=== PATIENT | male | born 1955 | race Caucasian/White ===

== ENCOUNTER → 2020-10-12 07:26 | Outpatient (REF) | payer MEDICARE, SELFPAY ==
--- NOTE | 2020-10-12 07:30 | CA_ITS ---
Transthoracic Echocardiogram Patient (Last, First, Middle): Ramy Felix, Gender: Male Date of : 1955 Age: 64 Procedure Date: 10/12/2020 Procedure Type: Transthoracic Echocardiogram Location: OP Height: 180. cm Weight: 128. kg BSA: 2.44 m2 Heart Rate: bpm BP: 122 / 60 mmHg Rehabilitation Case Coordinator: KARIN Referring MD: Mando Dean [facility] Healthcare Marketer: Jose Castellanos MD Symptoms: R01.1 - Cardiac murmur, unspecified Study Quality: Fair ECG Rhythm: Sinus Conclusions: - 1. Normal LV systolic function with moderate LVH with impaired relaxation filling pattern 2. Limited visualization of cardiac valves with normal cardiac valvular Doppler 3. Normal calculated RV systolic pressure 4. No gross pericardial effusion Findings Left Ventricle Normal left ventricular size and systolic function. There is moderately increased left ventricular wall thickness. The visually estimated ejection fraction is between 55-60%. Spectral Doppler is indicative of an impaired relaxation filling pattern. E/E prime ratio is between 8 and 15 consistent with indeterminate filling pressures. Right Ventricle Normal right ventricular cavity size and systolic function. Atria The left atrium is likely dilated. There is lipomatous hypertrophy of the interatrial septum. Interatrial shunt cannot be excluded. The right atrium was not well visualized. Aortic Valve The aortic valve was not well visualized. There is no aortic valve stenosis. There is no aortic valve regurgitation. Mitral Valve Likely normal mitral valve structure and function. There is trace mitral valve regurgitation. There is no mitral valve stenosis. Pulmonic Valve The pulmonic valve was not well visualized. Tricuspid Valve Likely normal tricuspid valve structure and function. There is trace tricuspid valve regurgitation. The right ventricular systolic pressure is normal. There is no evidence of pulmonary hypertension. Great Vessels All visible segments of the aorta are normal in size. The pulmonary artery was not well visualized. Venous The inferior vena cava was not well visualized. Pericardium/Pleural There is no evidence of pericardial effusion. Prior Study Comparison No prior study available for comparison. Measurements 2D Linear Measurements IVSd: 1.56 0.6-0.9/0.6-1.0 cm LVIDd: 4.60 3.9-5.3/4.2-5.9 cm LVIDd Index: 1.89 2.4-3.2/2.2-3.1 cm/m2 LVIDs: 3.18 2.0-3.6 cm LVPWd: 1.55 0.7-1.1 cm Ao Root: 3.50 2.1-3.5 cm LA Diam: 4.20 2.7-3.8/3.0-4.0 cm LAIDs Index: 1.72 1.5-2.3 cm/m2 LV Mass: 375.42 67-162/88-224 g LV Mass Index: 153.86 43-95/49-115 g/m2 LVOT Diam: 2.30 3.0+(-)1.3 cm Mitral Valve MV Pk E: 0.81 MV PK A: 1.11 MV Decel Time: 208.00 E/A: 0.70 E'Lateral: 7.45 E'Medial: 8.70 E/E' Med: 9.30 E/E' Lat: 10.80 PHT: 61.00 MVA PHT: 3.61 Decel Morris: 3.88 Aortic Valve AoV Pk Bobby: 1.75 AoV Mn Bobby: 1.21 AoV VTI: 0.36 AoV Pk Grad: 12.00 Aov Mn Grad: 7.00 KENRICK Cont.VTI: 2.94 LVOT LVOT Pk Bobby: 1.17 LVOT Mn Bobby: 0.78 LVOT VTI: 0.26 LVOT Pk Grad: 5.00 LVOT Mn Grad: 3.00 LVOT Diam: 2.30 LVOT Area: 4.15 Diastolic Function MV Pk E: 0.81 MV Pk A: 1.11 E/A: 0.70 E'Medial: 8.70 E/E' Med: 9.30 E' Laterial: 7.45 E/E' Lat: 10.80 Tricuspid Valve TR Pk Bobby: 1.60 TR Pk Grad: 10.00 RA Press: 3.00 RVSP: 13.00 Great Vessels Aorta Ao Root-2D: 3.50 2.0-3.7 cm Ao Asc: 3.50 2.1-3.4 cm Pulmonary Valve PV Pk Bobby: 1.00 Peak PV Grad: 4.00 Updated in Other Vendor System with Status of Final Jose Castellanos MD electronically signed on 10/12/2020 12:14:37 PM with status of Final
== END ==
LOC: HO.CARD 07:26
PROVIDERS: PCP Nurse Practitioner Family; Visit Provider Nurse Practitioner Family
DX: R01.1 Cardiac murmur, unspecified (principal)
CPT/HCPCS: 93306

== ENCOUNTER 2021-06-06 07:55 | Outpatient (REF) | payer MEDICARE, SELFPAY ==
[2021-06-06 12:24] LABS: Alanine Aminotransferase 38 U/L (0-40); Albumin Level 3.9 g/dL (3.5-5.0); Alkaline Phosphatase 65 U/L (39-117); Anion Gap 13 (12-20); Aspartate Amino Transferase 27 U/L (5-37); Bilirubin Total 0.4 mg/dL (0.0-1.0); Blood Urea Nitrogen 16 mg/dL (9-16); Calcium 9.3 mg/dL (8.4-10.2); Carbon Dioxide 26 mmol/L (22-29); Chloride 104 mmol/L (96-108); Cholesterol 210 mg/dL; Estimated Glomerular Filt Rate > 60; Glucose Fasting 94 mg/dL (60-99); HDL Cholesterol 34 mg/dL; LDL Cholesterol Calculated 133 mg/dl; Potassium 4.2 mmol/L (3.3-5.1); Sodium 139 mmol/L (135-145); Total Protein 7.7 g/dL (6.5-8.0); Triglycerides 215 mg/dL
[2021-06-06 12:35] LABS: TSH reflex Free T4 1.38 uIU/mL (0.32-4.0)
== END 2021-06-06 07:56 | disposition home or self-care (01) ==
LOC: HO.HMGCLDS 07:55
PROVIDERS: PCP Nurse Practitioner Family; Visit Provider Nurse Practitioner Family
DX: Z12.5 Encounter for screening for malignant neoplasm of prostate (principal); I10 Essential (primary) hypertension
CPT/HCPCS: 36415; 80053; 80061; 84153; 84443

== ENCOUNTER 2021-06-20 15:31 | Outpatient (REF) | payer MEDICARE, SELFPAY ==
--- NOTE | ~2021-06-20 | XR_ITS ---
EXAMINATION: XR KNEE, LEFT CLINICAL INFORMATION: Pain in left knee. COMPARISON: None. TECHNIQUE: 4 views of the left knee. FINDINGS: There is loss of medial and patellofemoral compartment joint space with mild periarticular spurring in the tricompartments. There is mild suprapatellar joint effusion. No bony erosive changes or loose body seen. XR/XR knee LT 4V IMPRESSION: Degenerative arthritic left knee with periarticular spurring in the medial and patellofemoral compartment with mild loss of joint space. Mild suprapatellar joint effusion. No acute fracture or loose body seen.
== END 2021-06-20 15:32 | disposition home or self-care (01) ==
LOC: HO.HMGCX 15:31
PROVIDERS: PCP Nurse Practitioner Family; Visit Provider Nurse Practitioner Family
DX: M25.562 Pain in left knee (principal)
CPT/HCPCS: 73564

== ENCOUNTER 2021-10-28 15:11 | Outpatient (REF) | payer MEDICARE, SELFPAY ==
--- NOTE | ~2021-10-28 | CT_ITS ---
EXAMINATION: CT CHEST SCREENING CLINICAL INFORMATION: Current smoker. 48 pack year history. COMPARISON: None. TECHNIQUE: Multidetector volumetric CT imaging of the chest is performed without contrast using low dose technique. Additional 2D coronal and sagittal reformatted images and axial 3D maximum intensity projection (MIP) images are generated on the CT workstation. This CT examination was performed using dose optimization techniques as appropriate, variously including the following: *Automated exposure control *Adjustment of mA and/or kV according to patient size (this includes techniques or standardized protocols for targeted exams where dose is matched to indication/reason for exam; i.e. extremities or head) *Use of iterative reconstruction technique DLP: 101 mGy-cm FINDINGS: LUNGS: There is evidence of emphysema. There is mild cystic change seen in the lungs. There is a 4 mm left upper lobe nodule axial image 153 series 5. There are 2 adjacent left upper lobe nodules measuring 3 and 4 mm axial image 186 and 190 series 5. There is a 4 mm peripheral or subpleural left upper lobe nodule adjacent to the fissure axial image 189 series 5. There is a 3 mm peripheral nodule along the right minor fissure axial image 272 series 5. There is minimal scarring or subsegmental atelectasis at the lung bases. No endobronchial or endotracheal lesion is seen. MEDIASTINUM: The mediastinum is normal. PLEURA: There is no pleural effusion. No pleural mass or thickening. AXILLA: No lymphadenopathy. UPPER ABDOMEN: Unremarkable OSSEOUS STRUCTURES: Mild degenerative changes of the spine. CT/CT lung screening IMPRESSION: Emphysema. Small pulmonary nodules. ASSESSMENT: Lung-RADS category 2: Benign RECOMMENDATION: Annual low-dose chest CT follow-up recommended.
== END 2021-10-28 15:12 | disposition home or self-care (01) ==
LOC: HO.CT 15:11
PROVIDERS: Visit Provider Physician Assistant Medical
DX: Z12.2 Encounter for screening for malignant neoplasm of respiratory organs (principal); F17.210 Nicotine dependence, cigarettes, uncomplicated
CPT/HCPCS: 71271; G0296

== ENCOUNTER 2022-01-16 07:27 | Outpatient (REF) | payer MEDICARE, SELFPAY ==
[2022-01-16 11:38] LABS: Appearance Urine Clear; Color Urine Yellow; Glucose Urine UA Negative (Negative); Leukocyte Esterase Urine Trace (Negative); Nitrite Urine Negative (Negative); PH 6.5 (5.0-8.0); Urine Blood Negative (Negative); Urine Ketones Negative (Negative); Urine Protein Negative (Neg-Trace)
[2022-01-16 11:42] LABS: Bacteria Urine None Seen (None Seen); Hyaline Casts Urine 0-2 /LPF (0-2); RBC Urine 0-2 /HPF (0-2); Squamous Epithelial Cell Urine 0-2 /HPF (0-2); WBC Urine 0-5 /HPF (0-5)
[2022-01-16 12:09] LABS: Alanine Aminotransferase 39 U/L (0-40); Alkaline Phosphatase 62 U/L (39-117); Anion Gap 16 (12-20); Aspartate Amino Transferase 29 U/L (5-37); Bilirubin Total 0.6 mg/dL (0.0-1.0); Blood Urea Nitrogen 15 mg/dL (9-16); Calcium 9.5 mg/dL (8.4-10.2); Carbon Dioxide 25 mmol/L (22-29); Chloride 105 mmol/L (96-108); Cholesterol 208 mg/dL; Estimated Glomerular Filt Rate > 60; Glucose Fasting 108 mg/dL (60-99); HDL Cholesterol 35 mg/dL; LDL Cholesterol Calculated 130 mg/dl; Potassium 4.5 mmol/L (3.3-5.1); Sodium 141 mmol/L (135-145); Total Protein 7.6 g/dL (6.5-8.0); Triglycerides 217 mg/dL
[2022-01-16 12:15] LABS: TSH reflex Free T4 1.29 uIU/mL (0.32-4.0)
== END 2022-01-16 07:28 | disposition home or self-care (01) ==
LOC: HO.HMGCLDS 07:27
PROVIDERS: PCP Nurse Practitioner Family; Visit Provider Nurse Practitioner Family
DX: E78.5 Hyperlipidemia, unspecified (principal)
CPT/HCPCS: 36415; 80053; 80061; 81001; 84443

== ENCOUNTER 2022-02-14 13:42 | Outpatient (REF) | payer MEDICARE, SELFPAY ==
[2022-02-14 14:20] LABS: Binax Internal Control QC Valid; Binax Now Covid-19 Ag Negative (Negative); Binax Performed by: HO.BONILM
== END 2022-02-14 13:43 | disposition home or self-care (01) ==
LOC: HO.HMGCLDS 13:42
PROVIDERS: PCP Nurse Practitioner Family; Visit Provider Internal Medicine
DX: Z20.822 Contact with and (suspected) exposure to COVID-19 (principal); J06.9 Acute upper respiratory infection, unspecified
CPT/HCPCS: 87811; C9803

== ENCOUNTER 2022-05-04 14:33 | Outpatient (REF) | payer MEDICARE, SELFPAY ==
[2022-05-04 15:17] LABS: Influenza A PCR POSITIVE (Negative); Influenza B PCR NEGATIVE (Negative); Resp Syncy Virus RNA Qual PCR NEGATIVE (Negative); SARS COV2 PCR INHOUSE NEGATIVE (Negative)
== END 2022-05-04 14:34 | disposition home or self-care (01) ==
LOC: HO.LNP 14:33
DX: Z20.822 Contact with and (suspected) exposure to COVID-19 (principal); J06.9 Acute upper respiratory infection, unspecified
CPT/HCPCS: 0241U

== ENCOUNTER 2022-07-12 08:22 | Outpatient (REF) | payer MEDICARE, SELFPAY ==
[2022-07-12 11:31] LABS: Appearance Urine Clear; Color Urine Yellow; Glucose Urine UA Negative (Negative); Leukocyte Esterase Urine Negative (Negative); Nitrite Urine Negative (Negative); PH 6.5 (5.0-9.0); Urine Blood Negative (Negative); Urine Ketones Negative (Negative); Urine Protein Negative (Neg-Trace)
[2022-07-12 12:26] LABS: Alanine Aminotransferase 27 U/L (0-40); Albumin Level 3.9 g/dL (3.5-5.0); Alkaline Phosphatase 65 U/L (39-117); Anion Gap 15 (12-20); Aspartate Amino Transferase 32 U/L (5-37); Bilirubin Total 0.7 mg/dL (0.0-1.0); Blood Urea Nitrogen 12 mg/dL (9-16); Calcium 9.2 mg/dL (8.4-10.2); Carbon Dioxide 25 mmol/L (22-29); Chloride 104 mmol/L (96-108); Cholesterol 127 mg/dL; Estimated Glomerular Filt Rate > 60; Glucose Fasting 97 mg/dL (60-99); HDL Cholesterol 34 mg/dL; LDL Cholesterol Calculated 68 mg/dl; Potassium 4.8 mmol/L (3.3-5.1); Sodium 139 mmol/L (135-145); Total Protein 7.6 g/dL (6.5-8.0); Triglycerides 129 mg/dL
== END 2022-07-12 08:23 | disposition home or self-care (01) ==
LOC: HO.HMGCLDS 08:22
PROVIDERS: PCP Nurse Practitioner Family; Visit Provider Nurse Practitioner Family
DX: E78.5 Hyperlipidemia, unspecified (principal)
CPT/HCPCS: 36415; 80053; 80061; 81003

== ENCOUNTER 2022-08-05 08:46 | Outpatient (REF) | payer MEDICARE, SELFPAY | END 2022-08-05 08:47 | disposition home or self-care (01) | LOC: HO.HMGCLDS 08:46 | PROVIDERS: PCP Nurse Practitioner Family; Visit Provider Nurse Practitioner Family | DX: Z12.5 Encounter for screening for malignant neoplasm of prostate (principal) | CPT/HCPCS: 36415; 84153 ==

== ENCOUNTER 2022-08-28 08:46 | Outpatient (REF) | payer MEDICARE, SELFPAY ==
--- NOTE | ~2022-08-28 | XR_ITS ---
EXAMINATION: XR CHEST CLINICAL INFORMATION: Acute upper respiratory infection. COMPARISON: 05/08/2009 chest radiographs. TECHNIQUE: 2 views of the chest were obtained. FINDINGS: Mild linear markings are seen in the right middle lobe and lingula. There are no pleural effusions. The heart and mediastinal structures are unremarkable. XR/XR chest 2V IMPRESSION: Mild linear atelectasis versus scarring in the right middle lobe and lingula. No acute cardiopulmonary process.
== END 2022-08-28 08:47 | disposition home or self-care (01) ==
LOC: HO.HMGCX 08:46
PROVIDERS: PCP Nurse Practitioner Family; Visit Provider Internal Medicine
DX: J06.9 Acute upper respiratory infection, unspecified (principal)
CPT/HCPCS: 71046

== ENCOUNTER 2022-10-30 15:00 | Outpatient (REF) | payer MEDICARE, SELFPAY ==
--- NOTE | ~2022-10-30 | CT_ITS ---
EXAMINATION: CT CHEST SCREENING CLINICAL INFORMATION: 48 pack year history. Current smoker. COMPARISON: Previous chest CT October 2021 and chest x-ray August 2022 TECHNIQUE: Multidetector volumetric CT imaging of the chest is performed without contrast using low dose technique. Additional 2D coronal and sagittal reformatted images and axial 3D maximum intensity projection (MIP) images are generated on the CT workstation. This CT examination was performed using dose optimization techniques as appropriate, variously including the following: *Automated exposure control *Adjustment of mA and/or kV according to patient size (this includes techniques or standardized protocols for targeted exams where dose is matched to indication/reason for exam; i.e. extremities or head) *Use of iterative reconstruction technique DLP: 90 mGy-cm FINDINGS: LUNGS: Mild emphysema. 4 mm left upper lobe nodule axial image 134 series 5. 3 mm left upper lobe nodule axial image 168 and 172 series 5. 4 mm peripheral or subpleural right middle lobe nodule adjacent to the major fissure axial image 311 series 5. These are stable. No new pulmonary nodule. Scattered areas of scarring or subsegmental atelectasis are stable. MEDIASTINUM: The mediastinum is normal. CORONARY ARTERY CALCIFICATION: None visualized on this study. PLEURA: There is no pleural effusion. No pleural mass or thickening. AXILLA: No lymphadenopathy. UPPER ABDOMEN: Unremarkable OSSEOUS STRUCTURES: Degenerative changes of the spine. Right anterior lateral 10th rib fracture. CT/CT lung screening IMPRESSION: Emphysema. Stable small pulmonary nodules. ASSESSMENT: Lung-RADS category 2: Benign RECOMMENDATION: Annual low-dose chest CT follow-up recommended.
== END 2022-10-30 15:01 | disposition home or self-care (01) ==
LOC: HO.CT 15:00
PROVIDERS: PCP Nurse Practitioner Family; Visit Provider Physician Assistant Medical
DX: Z12.2 Encounter for screening for malignant neoplasm of respiratory organs (principal); F17.210 Nicotine dependence, cigarettes, uncomplicated
CPT/HCPCS: 71271

== ENCOUNTER 2023-04-02 08:39 | Outpatient (AMB) | payer MEDICARE, SELFPAY ==
--- NOTE | 2023-04-02 08:47 | A.OFFPC_ITS ---
Vital Signs 04/02/23 08:48 Height 5 ft 11 in Weight 281 lb BMI 39.2 BP 122/78 Blood Pressure Location Lt brachial Position Sitting Pulse 82 Pulse Source Pulse Oximeter Pulse Oximetry (%) 93 Oxygen Delivery Method Room Air Intake Visit Reasons: 6 Month follow up Allergies camphor [From POLAR FREEZE] Allergy (Unknown, Verified 04/02/23 08:49) UNK menthol [From POLAR FREEZE] Allergy (Unknown, Verified 04/02/23 08:49) UNK ragweed pollen [RAGWEED] Allergy (Unknown, Verified 04/02/23 08:49) UNK DUST Allergy (Unknown, Uncoded 04/02/23 08:49) UNK Tobacco use date assessed: 09/27/22 Fall risk assessment: No Falls in past year Last assessed Fall Risk: 04/02/23 Dental Screening Dental Screen Date: 04/02/23 Did you have a dental visit in the last 12 months?: No Did you have a dental problem in the last 6 months where you did not have access to dental care?: No Was dental information given to patient?: Patient has dentist HPI 6 Month follow up HPI Details Dyslipidemia: Pt is currently taking rosuvastatin 10mg. Labs have already been ordered. Denies chest pain, shortness of breath, and dizziness. [facility] Medical History (Updated 09/27/22 @ 09:55 by ADOLFO Andino-MARGY) Obesity Personal history of nicotine dependence Dyslipidemia Hidradenitis suppurativa HTN (hypertension) Surgical History History of colonoscopy Social History Housing: Other Alcohol intake: current Alcohol intake frequency: holidays/special occasions only Patient Tobacco Use Status: Current everyday Tobacco user Tobacco use type: Cigarette Cigarettes Per Day: 5 Years Smoked: (onset 18yo, x 47 years at 3/4ppd - 35pyh) e-Cigarette/Vaping Use: Currently Using Second Hand Smoke Exposure: No service: No Current occupational status: employed 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 Carlos Etienne, Juana Lezama, Raz Kline and colleagues, with an educational radha from [employer]. Review of Systems Const Reports as per HPI Physical exam (Primary Care) Vital Signs: Last Vital Signs Pulse 82 04/02/23 08:48 BP 122/78 04/02/23 08:48 Pulse Ox 93 04/02/23 08:48 Oxygen Delivery Method Room Air 04/02/23 08:48 BMI result Body Mass Index 39.2 Tobacco/Smoking Status: Tobacco use Status Tobacco use date assessed 09/27/22 04/02/23 08:48 Patient Tobacco Use Status Current everyday Tobacco 04/02/23 08:48 Tobacco use type Cigarette 04/02/23 08:48 e-Cigarette/Vaping Use Currently Using 04/02/23 08:48 Thrive Assessment: Date of Thrive Assessment Date Thrive assessed 09/27/22 04/02/23 08:48 Const General: cooperative Nutritional Appearance: obese Orientation/consciousness: patient oriented x3 Resp Effort & Inspection: normal respiratory effort Auscultation: clear to auscultation bilaterally Cardio Rate: regular rate Rhythm: regular rhythm Heart sounds: S1 normal heart sound present and S2 normal heart sound present Neuro General: patient oriented x3 Psych Appearance: grossly normal Mental Status: mental status grossly normal Speech and movement: Normal speech and movement present Affect: normal affect Attitude: cooperative Thought process: Normal thought process present Thought content: Normal thought content present Insight: Good insight present (Psych) Judgement: Good judgement present (Psych) Assessment and Plan Assessment & Plan (1) Dyslipidemia: Code(s): E78.5 - Hyperlipidemia, unspecified Plan: Labs have already been ordered Plan The patient agreed to the use of a certified medical biller for this encounter. Scribed for MYA Loza by Elise Freeman certified medical biller, on 04/02/2023 at 09:00 EST. Coding Level of Care Code Est Pt Level 3 (19500) Diagnoses Dyslipidemia E78.5
[2023-04-02 08:48] VITALS: BP 122/78; PULSE 82; O2SAT 93; BMI 39.2
== END 2023-04-02 09:08 | disposition home or self-care (01) ==
PROVIDERS: Visit Provider Nurse Practitioner Family
DX: E78.5 Hyperlipidemia, unspecified (principal)
CPT/HCPCS: 99213

== ENCOUNTER 2023-04-02 09:09 | Outpatient (REF) | payer MEDICARE, SELFPAY ==
[2023-04-02 11:18] LABS: Appearance Urine Clear; Color Urine Yellow; Glucose Urine UA Negative (Negative); Leukocyte Esterase Urine Negative (Negative); Nitrite Urine Negative (Negative); PH 6.5 (5.0-9.0); Urine Blood Negative (Negative); Urine Ketones Negative (Negative); Urine Protein Negative (Neg-Trace)
[2023-04-02 11:18] LABS: Basophils Absolute Auto 0.1 X10*3/uL (0.0-0.2); Basophils Percent Auto 0.8 % (0-2); Eosinophils Absolute Auto 0.4 X10*3/uL (0.0-0.4); Eosinophils Percent Auto 3.9 % (0-4); Hematocrit 49.9 % (42.0-52.0); Hemoglobin 16.1 g/dl (14.0-18.0); Imm Gran Abs Auto 0.03 X10*3/uL (0.00-0.03); Imm Gran Pct Auto 0.3 % (0.0-0.4); MANUAL DIFF FLAG NO; Mean Corpuscular HGB Conc 32.3 g/dl (31.0-36.0); Mean Corpuscular Hemoglobin 32.1 pg (27.0-33.0); Mean Corpuscular Volume 99.4 fL (80.0-98.0); Mean Platelet Volume 12.4 fL (9.4-12.4); Monocytes Absolute Auto 0.8 X10*3/uL (0.1-1.2); Monocytes Percent Auto 7.5 % (2-11); Neutrophils Absolute Auto 6.1 x10*3/uL (2.0-8.3); Neutrophils Percent Auto 58.5 % (45-73); Platelet Count 215 X10*3/uL (160-400); Red Blood Count 5.02 X10*6/uL (4.60-5.80); Red Cell Distribution Width 13.2 % (11.0-16.0); White Blood Count 10.5 X10*3/uL (4.8-10.8)
[2023-04-02 11:51] LABS: Alanine Aminotransferase 25 U/L (0-40); Alkaline Phosphatase 68 U/L (39-117); Anion Gap 12 (12-20); Aspartate Amino Transferase 24 U/L (5-37); Bilirubin Total 0.3 mg/dL (0.0-1.0); Blood Urea Nitrogen 10 mg/dL (9-16); Calcium 9.7 mg/dL (8.4-10.2); Carbon Dioxide 27 mmol/L (22-29); Chloride 103 mmol/L (96-108); Cholesterol 133 mg/dL (<200); Estimated Glomerular Filt Rate > 60; Glucose Fasting 106 mg/dL (60-99); HDL Cholesterol 36 mg/dL (>40); LDL Cholesterol Calculated 65 mg/dL (<100); Potassium 4.2 mmol/L (3.3-5.1); Sodium 138 mmol/L (135-145); Total Protein 7.9 g/dL (6.5-8.0); Triglycerides 163 mg/dL (<150)
[2023-04-02 11:52] LABS: TSH reflex Free T4 1.15 uIU/mL (0.32-4.0)
== END 2023-04-02 09:10 | disposition home or self-care (01) ==
LOC: HO.HMGCLDS 09:09
PROVIDERS: PCP Nurse Practitioner Family; Visit Provider Nurse Practitioner Family
DX: Z00.00 Encounter for general adult medical examination without abnormal findings (principal); E78.5 Hyperlipidemia, unspecified; I10 Essential (primary) hypertension; E66.9 Obesity, unspecified; F17.200 Nicotine dependence, unspecified, uncomplicated
CPT/HCPCS: 36415; 80053; 80061; 81003; 84443; 85025

== ENCOUNTER 2023-08-11 11:42 | Outpatient (AMB) | payer MEDICARE, SELFPAY ==
[2023-08-11 11:48] VITALS: BP 130/80; PULSE 83; TEMP 36.8; O2SAT 93; BMI 39.2
--- NOTE | 2023-08-11 11:48 | AM.OFFWIN_ITS ---
Intake Vital Signs 08/11/23 11:48 Height 5 ft 11 in Weight 281 lb BMI 39.2 BP 130/80 Blood Pressure Location Lt brachial Position Sitting Pulse 83 Pulse Source Pulse Oximeter Temp 98.3 F Temp Source Oral Pulse Oximetry (%) 93 Oxygen Delivery Method Room Air Intake Visit Reasons: EP Swollen glands, cold, hard to breath Intake Note: pt is here for sore throat, cough, difficulty breathign due to congestion Patient Tobacco Use Status: Current everyday Tobacco user Allergies camphor [From POLAR FREEZE] Allergy (Unknown, Verified 08/11/23 11:48) UNK menthol [From POLAR FREEZE] Allergy (Unknown, Verified 08/11/23 11:48) UNK ragweed pollen [RAGWEED] Allergy (Unknown, Verified 08/11/23 11:48) UNK DUST Allergy (Unknown, Uncoded 04/02/23 08:49) UNK Do you need a note to return to daycare/school/sports/work: No HPI HPI Comments History of Present Illness Details 67-year-old male presents for nasal yecenia estion sinus pressure and fever. Also endorses some mild shortness of breath and chest congestion. Mucus is greenish in color fever 100.7. Home COVID test negative PFSH Medical History (Updated 08/11/23 @ 12:05 by ROXANA John) Obesity Personal history of nicotine dependence Dyslipidemia Hidradenitis suppurativa HTN (hypertension) Surgical History History of colonoscopy Social History Housing: Other Alcohol intake: current Alcohol intake frequency: holidays/special occasions only Patient Tobacco Use Status: Current everyday Tobacco user Tobacco use type: Cigarette Cigarettes Per Day: 5 Years Smoked: (onset 18yo, x 47 years at 3/4ppd - 35pyh) e-Cigarette/Vaping Use: Currently Using Second Hand Smoke Exposure: No service: No Current occupational status: employed 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 Cognitive needs: No Hearing needs: No Vision needs: No Physical Exam Vital Signs: Last Vital Signs Temp 98.3 F 08/11/23 11:48 Pulse 83 08/11/23 11:48 BP 130/80 08/11/23 11:48 Pulse Ox 93 08/11/23 11:48 Oxygen Delivery Method Room Air 08/11/23 11:48 BMI result Body Mass Index 39.2 Const General: cooperative, healthy appearing, no acute distress and alert Orientation/consciousness: patient oriented x3 Limitations: no limitations HEENT Head: Yes normal to inspection Ears: hearing grossly normal bilaterally General nose exam: Normal external nose present Resp Effort & Inspection: normal respiratory effort and able to speak in complete sentences Cardio Rate: regular rate Skin General skin exam: no rashes or lesions noted Neuro General: patient oriented x3 Extrem General: Yes normal to inspection Assessment & Plan Assessment & Plan (1) Acute sinusitis: Code(s): J01.90 - Acute sinusitis, unspecified Qualifiers: Sinusitis location: maxillary Recurrence: non-recurrent Qualified Code(s): J01.00 - Acute maxillary sinusitis, unspecified Plan: Suspect acute sinusitis will prescribe amoxicillin b.i.d. times 10 days. Medications: New amoxicillin-pot clavulanate 875-125 mg 1 tab PO BID 20 tabs 0RF Refilled albuterol sulfate 90 mcg/actuation 1 inh inhalation QID PRN 6.7 grams 1RF shortness of breath or wheezing Coding Level of Care Code Est Pt Level 2 (41341) Diagnoses Acute non-recurrent maxillary sinusitis J01.00 Sinusitis location: maxillary Recurrence: non-recurrent
== END 2023-08-11 12:06 | disposition home or self-care (01) ==
PROVIDERS: PCP Nurse Practitioner Family; Visit Provider Physician Assistant
DX: J01.00 Acute maxillary sinusitis, unspecified (principal)
CPT/HCPCS: 99051; 99212

== ENCOUNTER 2023-10-08 07:27 | Outpatient (AMB) | payer MEDICARE, SELFPAY ==
--- NOTE | 2023-10-08 07:38 | A.OFFPC_ITS ---
Vital Signs 10/08/23 07:43 Height 5 ft 11 in Weight 279 lb BMI 38.9 BP 116/74 Blood Pressure Location Rt brachial Position Sitting Pulse 76 Pulse Source Pulse Oximeter Pulse Oximetry (%) 92 Oxygen Delivery Method Room Air Intake Visit Reasons: PE/Ins. covered Intake Note: Patient here for physical exam. Colon: up to date due in 2024 Allergies camphor [From POLAR FREEZE] Allergy (Unknown, Verified 10/08/23 08:10) UNK menthol [From POLAR FREEZE] Allergy (Unknown, Verified 10/08/23 08:10) UNK ragweed pollen [RAGWEED] Allergy (Unknown, Verified 10/08/23 08:10) UNK DUST Allergy (Unknown, Uncoded 10/08/23 08:10) UNK Tobacco use date assessed: 10/08/23 Fall risk assessment: No Falls in past year Last assessed Fall Risk: 10/08/23 Dental Screening Dental Screen Date: 10/08/23 Did you have a dental visit in the last 12 months?: No Did you have a dental problem in the last 6 months where you did not have access to dental care?: No Was dental information given to patient?: No HPI PE/Ins. covered HPI Details Pt is here for a PE. Will order labs. Colon screen is up to date. Due for PSA, will order. Denies dribbling with urination, weak stream, and frequent nocturia. Pt is a smoker, goes for low-dose CTs. Pt has a hx of AAA. Will order US. Pt had basal cell carcinoma to left nare/face, removed approximately 2 weeks ago, bandage on currently. Next derm appt in 2 weeks for a follow up. Hx of vitamin D deficiency, will order lab. [facility] Medical History (Updated 10/08/23 @ 08:12 by MYA Andino) Hypertensive retinopathy Basal cell carcinoma (BCC) Obesity Personal history of nicotine dependence Dyslipidemia Hidradenitis suppurativa HTN (hypertension) Surgical History History of colonoscopy Social History Housing: Other Alcohol intake: current Alcohol intake frequency: holidays/special occasions only Patient Tobacco Use Status: Current everyday Tobacco user Tobacco use type: Cigarette Cigarettes Per Day: 5 Years Smoked: (onset 18yo, x 47 years at 3/4ppd - 35pyh) e-Cigarette/Vaping Use: Currently Using Second Hand Smoke Exposure: No service: No Current occupational status: employed 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 1. Little interest or pleasure in doing things: not at all 2. Feeling down, depressed, or hopeless: not at all 3. Trouble falling or staying asleep, or sleeping too much: not at all 4. Feeling tired or having little energy: not at all 5. Poor appetite or overeating: not at all 6. Feeling bad about yourself - or that you are a failure or have let yourself or your family down: not at all 7. Trouble concentrating on things, such as reading the newspaper or watching television: not at all 8. Moving or speaking so slowly that other people could have noticed. Or the opposite - being so fidgety or restless that you have been moving around a lot more than usual: not at all 9. Thoughts that you would be better off or of hurting yourself in some way: not at all Total score: 0 Depression Screening Interpretation: Negative Depression Screening Done: Yes 44705 - PHQ-9 Billing: Yes Source: Developed by Drs. Carlos Etienne, Juana Lezama, Raz Kline and colleagues, with an educational radha from [employer]. Thrive Questionnaire Date Thrive assessed: 09/27/22 I am a: Patient What is your living situation today?: I choose not to answer this question Within the past 12 months, did the food you bought not last and you didn't have the money to get more?: I choose not to answer this question Within the past 12 months, did you worry whether your food would run out before you got money to buy more?: I choose not to answer this question Do you have trouble paying for medicines?: I choose not to answer this question Do you have trouble getting transportation to medical appointments?: I choose not to answer this question Do you have trouble paying your heating and electricity bill?: I choose not to answer this question Do you have trouble taking care of your child, family member or friend?: I choose not to answer this question Do you have trouble with day-to-day activities such as bathing, preparing meals, shopping, managing finances, etc.?: I choose not to answer this question Are you currently unemployed and looking for a job?: I choose not to answer this question Are you interested in more education?: I choose not to answer this question Currently or been in a relationship where the following occur: I choose not to answer this question THRIVE Score: 0 AUDIT C Alcohol Use Questionnaire (AUDIT-C) 1. How often do you have a drink containing alcohol?: Never 3. How often do you have six or more drinks on one occasion?: Never Total Score: 0 Score Reviewed/Action Taken: No KILEY-7 AMB Questionnaire KILEY-7 Date KILEY - 7 assessed: 10/08/23 Feeling nervous, anxious, or on edge: 0 = Not at all Not being able to stop or control worryin = Not at all Worrying too much about different things: 0 = Not at all Trouble relaxin = Not at all Being so restless that it is hard to sit still: 0 = Not at all Becoming easily annoyed or irritable: 0 = Not at all Feeling afraid as if something awful might happen: 0 = Not at all Total KILEY-7 score (0-4 normal; 5-9 mild; 10-14 moderate; 15-21 severe): 0 Source: Developed by Drs. Carlos Etienne, Juana Lezama, Raz Kline and colleagues, with an educational radha from [employer]. KILEY-7 Assessment Billing KILEY-7 Assessment Tool: KILEY-7 Assessment 94528 Review of Systems Const Denies chills and Denies fever(s) Eyes Denies blurry vision ENT Denies vertigo, Denies dizziness and Denies sore throat Card Denies chest pain at rest, Denies chest pain with activity, Denies diaphoresis, Denies dyspnea and Denies dyspnea on exertion Resp Denies cough, Denies dyspnea, Denies dyspnea on exertion and Denies wheezing GI Denies abdominal pain, Denies melena, Denies hematochezia, Denies constipation, Denies diarrhea and Denies loose stools Denies hematuria Musc Denies numbness and Denies tingling Skin/Breast Denies lesions Neuro Denies vertigo, Denies dizziness, Denies numbness and Denies tingling Psych Denies anxiety, Denies depression, Denies homicidal ideation, Denies suicidal ideation and Denies other (substance abuse) Aller/Immun Denies wheezing Physical exam (Primary Care) Vital Signs: Last Vital Signs Pulse 76 10/08/23 07:43 BP 116/74 10/08/23 07:43 Pulse Ox 92 10/08/23 07:43 Oxygen Delivery Method Room Air 10/08/23 07:43 BMI result Body Mass Index 38.9 Tobacco/Smoking Status: Tobacco use Status Tobacco use date assessed 10/08/23 10/08/23 07:47 Patient Tobacco Use Status Current everyday Tobacco 10/08/23 07:40 Tobacco use type Cigarette 10/08/23 07:40 e-Cigarette/Vaping Use Currently Using 10/08/23 07:40 PHQ-9: PHQ-9 Score PHQ-9: Total score 0 10/08/23 07:49 Depression Screening Interpretation: Negative Thrive Assessment: Date of Thrive Assessment Date Thrive assessed 09/27/22 10/08/23 07:40 Currently or been in a relationship where the following occur: I choose not to answer this question Const General: cooperative Nutritional Appearance: well nourished and obese Orientation/consciousness: patient oriented x3 HENMT Head: Yes normal to inspection, Yes normocephalic and Yes atraumatic Ears: TM's normal bilaterally Eyes General: appearance normal, both eyes and all related structures Alignment and Position: alignment normal and position normal Neck Neck: Yes normal visual inspection and Yes no lymphadenopathy Thyroid: Thyroid normal Resp Effort & Inspection: normal respiratory effort Auscultation: clear to auscultation bilaterally and diminished lung sounds Cardio Rate: regular rate Rhythm: regular rhythm Heart sounds: S1 normal heart sound present, S2 normal heart sound present and Murmur heart sound present systolic (faint) GI Palpation (GI): Soft to palpation and nontender Auscultation: normal bowel sounds Male General Exam: Yes normal external exam Penis: normal penis Scrotum: scrotum normal, testes descended bilaterally and no inguinal hernias Testes: no testicular mass Skin Other: bilat external elbows with faintly erythematous, dry appearing dermatitis, ? psoriasis. left nare/face bandage is CD+I. dressing post auricular (left) is CD+I. Multiple dry appearing lesions (range in color and shape) to upper chest/back, BUE. lower pannus with faint erythema, no signs of infection noted. Rashes: no rashes Neuro General: patient oriented x3, moves all extremities, no focal motor deficits and deep tendon reflexes 2+ bilaterally Romberg Test: Negative Psych Appearance: grossly normal Mental Status: mental status grossly normal Speech and movement: Normal speech and movement present Affect: normal affect Attitude: cooperative Thought process: Normal thought process present Thought content: Normal thought content present Insight: Good insight present (Psych) Judgement: Good judgement present (Psych) Assessment and Plan Assessment & Plan (1) Encounter for routine adult physical exam with abnormal findings: Code(s): Z00.01 - Encounter for general adult medical examination with abnormal findings Plan: Labs ordered (2) Screening PSA (prostate specific antigen): Code(s): Z12.5 - Encounter for screening for malignant neoplasm of prostate Plan: PSA ordered (3) Screening for AAA (abdominal aortic aneurysm): Code(s): Z13.6 - Encounter for screening for cardiovascular disorders Plan: US ordered (4) Smoker: Code(s): F17.200 - Nicotine dependence, unspecified, uncomplicated Plan: LDCTs (5) Vitamin D deficiency: Code(s): E55.9 - Vitamin D deficiency, unspecified Plan: Vitamin D ordered (6) Basal cell carcinoma (BCC): Code(s): C44.91 - Basal cell carcinoma of skin, unspecified Plan: follows up with derm Plan The patient agreed to the use of a medical administrator for this encounter. Scribed for ADOLFO Loza-MARGY by Elise Freeman medical administrator, on 10/08/2023 at 07:50 EST. Orders: Orders Complete Blood Count Auto Diff Today Z00.01 - Encounter for general adult medical examination with abnormal findings TSH reflex Free T4 Today Z00.01 - Encounter for general adult medical examination with abnormal findings UA CC w/rflx Micro + Cult Today Z00.01 - Encounter for general adult medical examination with abnormal findings Prostate Specific Antigen Scr Today Z12.5 - Encounter for screening for malignant neoplasm of prostate US abdominal aortic aneurysm Today F17.200 - Nicotine dependence, unspecified, uncomplicated, Z13.6 - Encounter for screening for cardiovascular disorders Comprehensive Oley. Panel Fast Today Z00.01 - Encounter for general adult medical examination with abnormal findings Lipid Panel Today Z00.01 - Encounter for general adult medical examination with abnormal findings Vitamin D 25-OH Total Today E55.9 - Vitamin D deficiency, unspecified Coding Level of Care Code Est Pt Prev Care >65y(34640) Diagnoses Encounter for routine adult physical exam with abnormal findings Z00.01 Screening PSA (prostate specific antigen) Z12.5 Screening for AAA (abdominal aortic aneurysm) Z13.6 Smoker F17.200 Vitamin D deficiency E55.9 Basal cell carcinoma (BCC) C44.91 Additional Codes KILEY-7 Assessment Billing - KILEY-7 Assessment Tool: KILEY-7 Assessment [id number] ([id number])
[2023-10-08 07:43] VITALS: BP 116/74; PULSE 76; O2SAT 92; BMI 38.9
== END 2023-10-08 08:06 | disposition home or self-care (01) ==
PROVIDERS: Visit Provider Nurse Practitioner Family
DX: Z00.00 Encounter for general adult medical examination without abnormal findings (principal); Z12.5 Encounter for screening for malignant neoplasm of prostate; Z13.6 Encounter for screening for cardiovascular disorders; F17.200 Nicotine dependence, unspecified, uncomplicated; E55.9 Vitamin D deficiency, unspecified; C44.91 Basal cell carcinoma of skin, unspecified
CPT/HCPCS: 99397

== ENCOUNTER 2023-10-08 08:05 | Outpatient (REF) | payer MEDICARE, SELFPAY ==
[2023-10-08 10:21] LABS: Appearance Urine Clear; Color Urine Yellow; Glucose Urine UA Negative (Negative); Leukocyte Esterase Urine Negative (Negative); Nitrite Urine Negative (Negative); Urine Blood Negative (Negative); Urine Ketones Negative (Negative); Urine Protein Negative (Neg-Trace)
[2023-10-08 10:22] LABS: MANUAL DIFF FLAG NO
[2023-10-08 10:32] LABS: Basophils Absolute Auto 0.1 X10*3/uL (0.0-0.2); Basophils Percent Auto 0.6 % (0-2); Eosinophils Absolute Auto 0.3 X10*3/uL (0.0-0.4); Eosinophils Percent Auto 2.8 % (0-4); Hematocrit 51.3 % (42.0-52.0); Hemoglobin 16.6 g/dl (14.0-18.0); Imm Gran Abs Auto 0.04 X10*3/uL (0.00-0.03); Imm Gran Pct Auto 0.4 % (0.0-0.4); Lymphocytes Absolute Auto 2.8 X10*3/uL (1.2-4.9); Lymphocytes Percent Auto 26.9 % (20-40); Mean Corpuscular HGB Conc 32.4 g/dl (31.0-36.0); Mean Corpuscular Hemoglobin 32.4 pg (27.0-33.0); Mean Corpuscular Volume 100.2 fL (80.0-98.0); Mean Platelet Volume 12.6 fL (9.4-12.4); Monocytes Absolute Auto 0.8 X10*3/uL (0.1-1.2); Monocytes Percent Auto 7.1 % (2-11); Neutrophils Absolute Auto 6.5 x10*3/uL (2.0-8.3); Neutrophils Percent Auto 62.2 % (45-73); Platelet Count 191 X10*3/uL (160-400); Red Blood Count 5.12 X10*6/uL (4.60-5.80); Red Cell Distribution Width 13.4 % (11.0-16.0); White Blood Count 10.5 X10*3/uL (4.8-10.8)
[2023-10-08 10:57] LABS: Alanine Aminotransferase 31 U/L (0-40); Alkaline Phosphatase 65 U/L (39-117); Anion Gap 14 (12-20); Aspartate Amino Transferase 22 U/L (5-37); Bilirubin Total 0.5 mg/dL (0.0-1.0); Blood Urea Nitrogen 13 mg/dL (9-16); Calcium 10.2 mg/dL (8.4-10.2); Carbon Dioxide 30 mmol/L (22-29); Chloride 106 mmol/L (96-108); Cholesterol 129 mg/dL (<200); Estimated Glomerular Filt Rate > 60; Glucose Fasting 111 mg/dL (60-99); HDL Cholesterol 39 mg/dL (>40); LDL Cholesterol Calculated 64 mg/dL (<100); Potassium 5.5 mmol/L (3.3-5.1); Sodium 144 mmol/L (135-145); Total Protein 8.2 g/dL (6.5-8.0); Triglycerides 134 mg/dL (<150)
[2023-10-08 11:11] LABS: Prostate Specific Antigen Scr 0.37 ng/mL (<0.05-4.0)
[2023-10-08 11:15] LABS: TSH reflex Free T4 1.13 uIU/mL (0.32-4.0)
== END 2023-10-08 08:06 | disposition home or self-care (01) ==
LOC: HO.HMGCLDS 08:05
PROVIDERS: PCP Nurse Practitioner Family; Visit Provider Nurse Practitioner Family
DX: Z00.01 Encounter for general adult medical examination with abnormal findings (principal); Z12.5 Encounter for screening for malignant neoplasm of prostate
CPT/HCPCS: 36415; 80053; 80061; 81003; 82306; 84153; 84443; 85025

== ENCOUNTER 2023-10-16 08:23 | Outpatient (REF) | payer MEDICARE, SELFPAY ==
--- NOTE | ~2023-10-16 | US_ITS ---
EXAMINATION: US RETROPERITONEAL LIMITED (AORTA) CLINICAL INFORMATION: Screening for AAA. COMPARISON: None available. TECHNIQUE: Romero-scale, color Doppler and spectral Doppler evaluation of the abdominal aorta. Technically limited study secondary to body habitus. FINDINGS: There is atherosclerotic disease. The measurements of the aorta in maximum AP and transverse dimensions respectively are as follows: Proximal: 3.4 x 3.0 cm. Mid: 2.4 x 2.6 cm. Distal: 4.6 x 4.2 cm. PSV: 56.3 cm/s. The measurements of the common iliac arteries in maximum AP and TRV dimensions are as follows: Right Common Iliac Artery: 1.4 x 1.5 cm. Left Common Iliac Artery: 1.7 x 1.4 cm. US/US abdominal aortic aneurysm IMPRESSION: Infrarenal abdominal aortic aneurysm measuring up to 4.6 cm. Based on published guidelines in J Am Arpan Radiol 2013; 10(10):789-794 and J Vasc Surg. 2018; 67:2-77, the recommendation for an abdominal aortic aneurysm with diameter 4.5-5.4 cm is vascular consultation and subsequent follow-up every 6 months.
== END 2023-10-16 08:24 | disposition home or self-care (01) ==
LOC: HO.HMGCX 08:23
PROVIDERS: PCP Nurse Practitioner Family; Visit Provider Nurse Practitioner Family
DX: F17.200 Nicotine dependence, unspecified, uncomplicated (principal); Z13.6 Encounter for screening for cardiovascular disorders
CPT/HCPCS: 76706

== ENCOUNTER 2023-11-22 14:16 | Outpatient (AMB) | payer MEDICARE, SELFPAY ==
--- NOTE | 2023-11-22 14:18 | MHC.OFFVIS ---
Vital Signs 11/22/23 14:20 Height 5 ft 11 in Weight 279 lb BMI 38.9 Intake Visit Reasons: [facility] [employer]/ [facility] PCP Ref./ 4.6 Infrarenal AAA Intake Note: [employer] [facility]/PCP referred for AAA s/p Abd US screening 4.6 cm Accompanied by: Self / Same As Patient Allergies ragweed pollen [RAGWEED] Allergy (Unknown, Verified 11/22/23 14:26) UNK DUST Allergy (Unknown, Uncoded 11/22/23 14:26) UNK HPI HPI [employer] [facility]/ [facility] PCP Ref./ 4.6 Infrarenal AAA: Details: Very pleasant morbidly obese 67-year-old gentleman presents for evaluation regarding abdominal aortic aneurysm. He was astutely worked up by the primary care team for screening aortic ultrasound. He has a known history of smoking. He reports he quit a month ago and at that time he was at a half a pack per day. At the peak of his smoking he was smoking nearly 2 packs per day. He is a nondiabetic. It is completely asymptomatic in terms of his aortic aneurysm but did have multiple questions regarding this and was quite concerned. He now presents to us for vascular evaluation [facility] Medical History Infrarenal abdominal aortic aneurysm (AAA) without rupture HTN (hypertension) Hypertensive retinopathy Dyslipidemia Hidradenitis suppurativa History of basal cell carcinoma (BCC) Nicotine dependence, cigarettes, uncomplicated Obesity Surgical History History of Mohs micrographic surgery for skin cancer History of colonoscopy Social History (Updated 11/22/23 @ 14:28 by ANICETO Galan) Housing: Other Alcohol intake: current Alcohol intake frequency: holidays/special occasions only Patient Tobacco Use Status: Former Tobacco user Tobacco use type: Cigarette Cigarettes Per Day: 5 Years Smoked: (onset 18yo, x 47 years at 3/4ppd - 35pyh) e-Cigarette/Vaping Use: Currently Using Second Hand Smoke Exposure: No service: No Current occupational status: employed 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 Cognitive needs: No Hearing needs: No Vision needs: No Review of Systems Const All systems reviewed & are unremarkable except as noted in HPI and below Reports no additional complaints ENT Reports Normal hearing present Card Denies chest pain, Denies chest pain at rest, Denies chest pain with activity and Denies pedal edema Resp Denies cough GI Denies abdominal pain Musc Denies abnormal gait, Denies muscle cramps and Denies radiating pain into limb Skin/Breast Denies skin ulcer and Denies wounds Neuro Reports Normal hearing present and Denies abnormal gait Psych Reports no additional complaints Physical Exam Vital Signs: BMI result Body Mass Index 38.9 Const General: cooperative, healthy appearing and comfortable Orientation/consciousness: oriented to person, oriented to place and oriented to time HEENT Head: Yes normal to inspection Neck Neck: Yes normal visual inspection Carotids: no bruits Chest Chest palpation & inspection: normal inspection of the chest Resp Effort & Inspection: normal respiratory effort and able to speak in complete sentences Auscultation: clear to auscultation bilaterally, no crackles, no rales, no rhonchi and no wheezes Cardio Rate: regular rate Rhythm: regular rhythm Heart sounds: S1 normal heart sound present and S2 normal heart sound present Bruits: no carotid bruits Peripheral pulses: Peripheral pulses 2+ throughout GI Inspection: Yes normal to inspection Skin Wounds: no wounds Hair: normal Neuro General: oriented to person, oriented to place and oriented to time Cranial nerves: Yes CN's II-XII intact bilaterally and Yes Normal hearing present Cognition (Neuro): normal cognition Motor exam (neuro): 5/5 motor strength present throughout Extrem Other: venous exam: No significant superficial varicosities or spider telangiectasias, minimal edema General: No clubbing, No cyanosis and No edema Psych Appearance: grossly normal Mental Status: mental status grossly normal Speech and movement: Normal speech and movement present Results Reviewed Results Reviewed: Noninvasive arterial testing dated 10/16/2023 demonstrates an infrarenal aortic aneurysm measuring 4.6 cm. Written report and images were reviewed Assessment & Plan Assessment & Plan (1) Infrarenal abdominal aortic aneurysm (AAA) without rupture: Comment: (Infrarenal AAA measuring 4.6 cm on 10/16/23 US) Code(s): I71.43 - Infrarenal abdominal aortic aneurysm, without rupture Category: Medical Plan: In short patient has radiologic evidence of a AAA on ultrasound 4.6 cm. We have discussed the pathophysiology of aortic aneurysms and the risk of ruptures. We have discussed rupture risk based on size. In addition we have discussed conservative measures and risk factor modification for prevention of increase in size of the aneurysm. the patient is scheduled for surveillance follow-up in approximately 6 months. Thank you for allowing us to participate in the care of this patient Orders: Orders US abdominal aortic aneurysm 6 Months I71.43 - Infrarenal abdominal aortic aneurysm, without rupture Coding Level of Care Code New Pt Level 4 (48676) Diagnoses Infrarenal abdominal aortic aneurysm (AAA) without rupture I71.43
[2023-11-22 14:20] VITALS: BMI 38.9
== END 2023-11-22 15:09 | disposition home or self-care (01) ==
PROVIDERS: PCP Nurse Practitioner Family; Visit Provider Surgery Vascular Surgery
DX: I71.43 Infrarenal abdominal aortic aneurysm, without rupture (principal)
CPT/HCPCS: 99203

== ENCOUNTER → 2023-11-22 14:16 | Outpatient (BNVA) | payer MEDICARE, SELFPAY | PROVIDERS: PCP Nurse Practitioner Family; Visit Provider Surgery Vascular Surgery | DX: I71.43 Infrarenal abdominal aortic aneurysm, without rupture (principal) | CPT/HCPCS: 99202 ==

== ENCOUNTER 2023-11-30 11:20 | Outpatient (AMB) | payer MEDICARE, SELFPAY ==
--- NOTE | 2023-11-30 12:32 | MHC.OFFWIV ---
Intake Vital Signs 11/30/23 12:33 Height 5 ft 11 in BP 126/70 Blood Pressure Location Rt brachial Position Sitting Pulse 70 Pulse Source Pulse Oximeter Temp 98.2 F Temp Source Oral Pulse Oximetry (%) 94 Oxygen Delivery Method Room Air Intake Visit Reasons: EP Bilateral feet swelling Intake Note: pt is here for bilateral feet swelling Patient Tobacco Use Status: Former Tobacco user Allergies ragweed pollen [RAGWEED] Allergy (Unknown, Verified 11/30/23 12:33) UNK DUST Allergy (Unknown, Uncoded 11/22/23 14:26) UNK Do you need a note to return to daycare/school/sports/work: No HPI EP Bilateral feet swelling HPI Details This is a 67-year-old male patient who presents to the walk-in clinic today with a one-week history of bilateral lower extremity swelling. Past medical history significant for hypertension, AAA, obesity. He denies any injury to lower extremities. PCP is Mando Dean. No history of kidney disease or CHF. Patient denies any shortness of breath. Denies any recent illness. Denies any change in diet or medications. [facility] Medical History Infrarenal abdominal aortic aneurysm (AAA) without rupture HTN (hypertension) Hypertensive retinopathy Dyslipidemia Hidradenitis suppurativa History of basal cell carcinoma (BCC) Nicotine dependence, cigarettes, uncomplicated Obesity Surgical History History of Mohs micrographic surgery for skin cancer History of colonoscopy Social History Housing: Other Alcohol intake: current Alcohol intake frequency: holidays/special occasions only Patient Tobacco Use Status: Former Tobacco user Tobacco use type: Cigarette Cigarettes Per Day: 5 Years Smoked: (onset 18yo, x 47 years at 3/4ppd - 35pyh) e-Cigarette/Vaping Use: Currently Using Second Hand Smoke Exposure: No service: No Current occupational status: employed 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 Cognitive needs: No Hearing needs: No Vision needs: No Review of Systems Const All systems reviewed & are unremarkable except as noted in HPI and below Physical Exam Vital Signs: Last Vital Signs Temp 98.2 F 11/30/23 12:33 Pulse 70 11/30/23 12:33 BP 126/70 11/30/23 12:33 Pulse Ox 94 11/30/23 12:33 Oxygen Delivery Method Room Air 11/30/23 12:33 Const General: cooperative, healthy appearing, comfortable and no acute distress Nutritional Appearance: obese HEENT Head: Yes normal to inspection Ears: hearing grossly normal bilaterally Neck Neck: Yes no lymphadenopathy and Yes no JVD Resp Effort & Inspection: normal respiratory effort Auscultation: clear to auscultation bilaterally Cardio Jugular venous distension: no JVD Palpation: normal PMI Rate: regular rate Rhythm: regular rhythm Heart sounds: Murmur heart sound present systolic Peripheral pulses: Peripheral pulses 2+ throughout Skin General skin exam: no rashes or lesions noted Neuro General: gait normal Extrem Other: BLE with 1+ edema b/l down to ankle. Normal pedal pulses and cap refill. No redness, warmth, rash, calf tenderness. Psych Appearance: grossly normal Mental Status: mental status grossly normal Speech and movement: Normal speech and movement present Assessment & Plan Assessment & Plan (1) Swelling of both lower extremities: Code(s): M79.89 - Other specified soft tissue disorders Plan: Patient has new onset mild bilateral lower extremity edema x 1 week. Denies any cough, orthopnea, shortness of breath. Exam is otherwise unremarkable. I have prescribed knee-high bilateral LE compression stockings and advised he be mindful of his sodium intake. We reviewed low-sodium diet foods. I would like him to f/u with PCP Mando Dean sooner than his scheduled visit in 2 months if possible. I have requested this of medical staff coordinator who is going to look at schedule and call patient. Patient and I discussed that should his swelling worsen, or new symptoms develop, he should return to the clinic sooner for evaluation, or go to the emergency department. He verbalizes understanding and agrees to plan. Medications: New compr.stocking,knee,long,large As directed 12 ea 0RF M79.89 - Other specified soft tissue disorders Coding Level of Care Code Est Pt Level 4 (26843) Diagnoses Swelling of both lower extremities M79.89
[2023-11-30 12:33] VITALS: BP 126/70; PULSE 70; TEMP 36.8; O2SAT 94
== END 2023-11-30 14:22 | disposition home or self-care (01) ==
PROVIDERS: PCP Nurse Practitioner Family; Visit Provider Nurse Practitioner Family
DX: M79.89 Other specified soft tissue disorders (principal)
CPT/HCPCS: 99214

== ENCOUNTER 2023-12-11 14:01 | Outpatient (AMB) | payer MEDICARE, SELFPAY ==
[2023-12-11 14:05] VITALS: BP 122/74; PULSE 72; TEMP 36.8; O2SAT 97; BMI 38.9
--- NOTE | 2023-12-11 14:05 | AM.OFFWIN_ITS ---
Intake Vital Signs 12/11/23 14:05 Height 5 ft 11 in Weight 279 lb BMI 38.9 BP 122/74 Blood Pressure Location Rt brachial Position Sitting Pulse 72 Pulse Source Pulse Oximeter Temp 98.2 F Temp Source Oral Pulse Oximetry (%) 97 Intake Visit Reasons: EP swollen ankles with skin rash Intake Note: pt is here for swollen ankles with skin rash Patient Tobacco Use Status: Former Tobacco user Allergies ragweed pollen [RAGWEED] Allergy (Unknown, Verified 12/11/23 14:05) UNK DUST Allergy (Unknown, Uncoded 11/22/23 14:26) UNK Do you need a note to return to daycare/school/sports/work: No HPI HPI Comments History of Present Illness Details This is a 68-year-old male with past medical history of an abdominal aortic aneurysm and hyperlipidemia presenting for evaluation of swelling in his feet and ankles bilaterally coupled with an itchy rash. Patient was seen here in urgent care on November 29 for lower extremity edema and was instructed to use compression stockings daily. Patient states he has been wearing the compression stockings which have been helpful for the edema however he has not been able to wear them for the past 2 days. Patient states that he noticed an itchy rash on his lower extremities yesterday and believes they may be associated with bug bites. Patient denies having any fevers, chills, chest pain, cough, shortness of breath or weight gain. [facility] Medical History Infrarenal abdominal aortic aneurysm (AAA) without rupture HTN (hypertension) Hypertensive retinopathy Dyslipidemia Hidradenitis suppurativa History of basal cell carcinoma (BCC) Nicotine dependence, cigarettes, uncomplicated Obesity Surgical History History of Mohs micrographic surgery for skin cancer History of colonoscopy Social History Housing: Other Alcohol intake: current Alcohol intake frequency: holidays/special occasions only Patient Tobacco Use Status: Former Tobacco user Tobacco use type: Cigarette Cigarettes Per Day: 5 Years Smoked: (onset 18yo, x 47 years at 3/4ppd - 35pyh) e-Cigarette/Vaping Use: Currently Using Second Hand Smoke Exposure: No service: No Current occupational status: employed 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 Cognitive needs: No Hearing needs: No Vision needs: No Review of Systems Const All systems reviewed & are unremarkable except as noted in HPI and below Reports no additional complaints Eyes Reports no additional complaints ENT Reports no additional complaints Card Reports no additional complaints, Denies chest pain, Reports leg edema and Denies dyspnea Resp Reports no additional complaints, Denies cough, Denies hemoptysis, Denies dyspnea and Denies wheezing GI Reports no additional complaints Musc Reports no additional complaints Skin/Breast Reports pruritus and Reports rash Neuro Reports no additional complaints Psych Reports no additional complaints Endo Reports no additional complaints Phani/Lymph Reports no additional complaints Aller/Immun Denies wheezing Physical Exam Vital Signs: Last Vital Signs Temp 98.2 F 12/11/23 14:05 Pulse 72 12/11/23 14:05 BP 122/74 12/11/23 14:05 Pulse Ox 97 12/11/23 14:05 BMI result Body Mass Index 38.9 Const General: cooperative, comfortable, no acute distress, well developed, alert, awake and Physically active Nutritional Appearance: obese Orientation/consciousness: patient oriented x3 Limitations: no limitations Skin Other: There are a total of 4 erythematous papules on the medial distal lower extremities bilaterally with evidence of manual excoriation; additionally there is trace pitting edema on the dorsal surface of the feet bilaterally and the distal lower extremities bilaterally. No evidence of a secondary cellulitis. Neuro General: patient oriented x3 Extrem Right lower extremity: normal to inspection and lower leg Details: no tenderness Left lower extremity: normal to inspection and lower leg Details: no tenderness Psych Appearance: grossly normal Mental Status: mental status grossly normal Insight: Good insight present (Psych) Judgement: Good judgement present (Psych) Assessment & Plan Assessment & Plan (1) Bilateral lower extremity edema: Comment: Patient is instructed to continue wearing his compression stockings daily. Code(s): R60.0 - Localized edema Plan: Compression stockings daily and elevate lower extremities when at rest. (2) Pruritic dermatitis: Comment: No evidence of a secondary cellulitis or allergic dermatitis. Code(s): L30.8 - Other specified dermatitis Plan: OTC hydrocortisone cream twice daily to the lesions in the distal lower extremities bilaterally. Coding Level of Care Code Est Pt Level 3 (95306) Diagnoses Bilateral lower extremity edema R60.0 Pruritic dermatitis L30.8 Time Spent (min) 20
== END 2023-12-11 14:40 | disposition home or self-care (01) ==
PROVIDERS: PCP Nurse Practitioner Family; Visit Provider Physician Assistant
DX: R60.0 Localized edema (principal); L30.8 Other specified dermatitis
CPT/HCPCS: 99213

== ENCOUNTER 2023-12-20 08:07 | Outpatient (REF) | payer MEDICARE, SELFPAY ==
--- NOTE | ~2023-12-20 | CT_ITS ---
EXAMINATION: CT LOW-DOSE SCREENING CHEST WITHOUT CONTRAST CLINICAL INFORMATION: Nicotine dependence, uncomplicated, current smoker. 45 pack years. COMPARISON: 10/30/2022, 10/28/2021. TECHNIQUE: Multidetector volumetric CT imaging of the chest is performed on a Siemens SOMATOM Definition scanner without contrast using low dose technique. Additional 2D coronal and sagittal reformatted images and axial 3D maximum intensity projection (MIP) images are generated on the CT workstation. This CT examination was performed using dose optimization techniques as appropriate, variously including the following: *Automated exposure control *Adjustment of mA and/or kV according to patient size (this includes techniques or standardized protocols for targeted exams where dose is matched to indication/reason for exam; i.e. extremities or head) *Use of iterative reconstruction technique TOTAL EXAM DLP: 106 mGy-cm. FINDINGS: PULMONARY NODULES: (As seen on series 4). -Average diameter 4 mm nodule in the minor fissure, consistent with intrapulmonary lymph node, stable. (Image 286). -5 mm medial right major fissure nodule, consistent with intrapulmonary lymph node, stable. (Image 333). -4 mm nodule lateral left upper lobe (image 156) is stable. -4 mm subpleural nodule posterior segment left upper lobe laterally (image 192) stable. -6 mm oval nodule central left upper lobe (image 196), stable. -4 mm pleural-based nodule in the medial left major fissure (image 196), stable and consistent with intrapulmonary lymph node. -There are no new or enlarging pulmonary nodules. LUNGS: -Rdml-hk-jldyofjg centrilobular emphysema, but upper lobe predominance. -Foci of parenchymal scarring in the medial right upper lobe anteriorly, lingula, as well as anterior medial right lower lobe and anteromedial left lower lobe. -No consolidations or acute groundglass opacities. -Mild small airway thickening, without bronchiectasis, or endobronchial filling defects, findings suggestive of bronchitis. -No pleural effusion or mass. -Central airways and trachea patent, although the trachea has a saber-sheath appearance. MEDIASTINUM: -Normal thyroid. -No abnormal lymphadenopathy in the mediastinum or hilum. -Aorta is normal in caliber with mild tortuosity but no aneurysm. -Main pulmonary artery is normal in size. -No esophageal abnormality. -No pericardial effusion. -Heart size is normal. -Prominent epicardial fat pad. CORONARY ARTERY CALCIFICATION: Trace RCA calcification. CHEST WALL/AXILLA: No masses or abnormal lymph nodes present. UPPER ABDOMEN: Included portions of the solid organs in the upper abdomen unremarkable on noncontrast imaging. OSSEOUS STRUCTURES: There are no suspicious lytic or blastic bone lesions. There are mild degenerative changes in the spine. Old inferior right 19th rib fracture laterally. CT/CT lung screening IMPRESSION: 1. Stable pulmonary nodules measuring up to 6 mm, with no new or enlarging pulmonary nodules identified. 2. Owkj-ue-uqtaasfq centrilobular emphysema with upper lobe predominance. 3. No active lung disease. 4. Mild thickening of the small airways, suggestive of bronchitis. 5. Additional ancillary findings as discussed in the body of the report. ASSESSMENT: 1. Lung-RADS Category 2: Benign appearance or behavior of nodules. 2. Lung-RADS Category S: None. RECOMMENDATION: Continued routine annual low-dose CT lung screening in 1 year is recommended. An order for CT CHEST LOW DOSE CANCER SCREENING ([id number]) can be placed. Electronically signed by: Cam Pugh MD 01/18/2024 01:15 PM EDT
== END 2023-12-20 08:08 | disposition home or self-care (01) ==
LOC: HO.CT 08:07
PROVIDERS: PCP Nurse Practitioner Family; Visit Provider Physician Assistant Medical
DX: Z12.2 Encounter for screening for malignant neoplasm of respiratory organs (principal); F17.210 Nicotine dependence, cigarettes, uncomplicated
CPT/HCPCS: 71271

== ENCOUNTER → 2023-12-20 08:09 | Outpatient (BNV) | payer MEDICARE, SELFPAY | PROVIDERS: PCP Nurse Practitioner Family; Visit Provider Radiology Diagnostic Radiology | DX: Z12.2 Encounter for screening for malignant neoplasm of respiratory organs (principal); F17.210 Nicotine dependence, cigarettes, uncomplicated | CPT/HCPCS: 71271 ==

== ENCOUNTER 2024-01-22 07:40 | Outpatient (REF) | payer MEDICARE, SELFPAY ==
[2024-01-22 11:03] LABS: Alanine Aminotransferase 26 U/L (0-40); Albumin Level 3.9 g/dL (3.5-5.0); Alkaline Phosphatase 64 U/L (39-117); Anion Gap 13 (12-20); Aspartate Amino Transferase 22 U/L (5-37); Bilirubin Total 0.3 mg/dL (0.0-1.0); Blood Urea Nitrogen 15 mg/dL (9-16); Calcium 9.6 mg/dL (8.4-10.2); Carbon Dioxide 27 mmol/L (22-29); Chloride 103 mmol/L (96-108); Estimated Glomerular Filt Rate > 60; Glucose Random 95 mg/dL (60-115); Potassium 3.7 mmol/L (3.3-5.1); Sodium 139 mmol/L (135-145); Total Protein 7.6 g/dL (6.5-8.0)
== END 2024-01-22 07:41 | disposition home or self-care (01) ==
LOC: HO.HMGCLDS 07:40
PROVIDERS: PCP Nurse Practitioner Family; Visit Provider Nurse Practitioner Family
DX: E87.5 Hyperkalemia (principal)
CPT/HCPCS: 36415; 80053

== ENCOUNTER 2024-01-31 09:57 | Outpatient (AMB) | payer MEDICARE, SELFPAY ==
[2024-01-31 09:59] VITALS: BP 118/74; PULSE 87; O2SAT 93; BMI 37.9
--- NOTE | 2024-01-31 09:59 | A.OFFPC_ITS ---
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 He is not currently on any medications for this. Will order labs. Dyslipidemia: Cholesterol has improved with rosuvastatin. Denies chest pain, shortness of breath, headache, dizziness, and blurred vision. Last echo was in 2020, will order repeat. [facility] Medical History Infrarenal abdominal aortic aneurysm (AAA) without rupture HTN (hypertension) Hypertensive retinopathy Dyslipidemia Hidradenitis suppurativa History of basal cell carcinoma (BCC) Nicotine dependence, cigarettes, uncomplicated Obesity Surgical History History of Mohs micrographic surgery for skin cancer History of colonoscopy Social History Housing: Other Alcohol intake: current Alcohol intake frequency: holidays/special occasions only Patient Tobacco Use Status: Former Tobacco user Tobacco use type: Cigarette Cigarettes Per Day: 5 Years Smoked: (onset 18yo, x 47 years at 3/4ppd - 35pyh) e-Cigarette/Vaping Use: Currently Using Second Hand Smoke Exposure: No service: No Current occupational status: employed 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 1. Little interest or pleasure in doing things: not at all 2. Feeling down, depressed, or hopeless: not at all 3. Trouble falling or staying asleep, or sleeping too much: not at all 4. Feeling tired or having little energy: not at all 5. Poor appetite or overeating: not at all 6. Feeling bad about yourself - or that you are a failure or have let yourself or your family down: not at all 7. Trouble concentrating on things, such as reading the newspaper or watching television: not at all 8. Moving or speaking so slowly that other people could have noticed. Or the opposite - being so fidgety or restless that you have been moving around a lot more than usual: not at all 9. Thoughts that you would be better off or of hurting yourself in some way: not at all Total score: 0 Depression Screening Interpretation: Negative Depression Screening Done: Yes 82085 - PHQ-9 Billing: Yes Source: Developed by Drs. Carlos Etienne, Juana Lezama, Raz Kline and colleagues, with an educational radha from [employer]. Thrive Questionnaire Date Thrive assessed: 01/31/24 I am a: Patient What is your living situation today?: I have a steady place to live Within the past 12 months, did the food you bought not last and you didn't have the money to get more?: I choose not to answer this question Within the past 12 months, did you worry whether your food would run out before you got money to buy more?: I choose not to answer this question Do you have trouble paying for medicines?: No Do you have trouble getting transportation to medical appointments?: No Do you have trouble paying your heating and electricity bill?: No Do you have trouble taking care of your child, family member or friend?: No Do you have trouble with day-to-day activities such as bathing, preparing meals, shopping, managing finances, etc.?: I choose not to answer this question Are you currently unemployed and looking for a job?: I choose not to answer this question Are you interested in more education?: No Please select the resources that you would like help with: None Currently or been in a relationship where the following occur: I choose not to answer THRIVE Score: 0 AUDIT C Alcohol Use Questionnaire (AUDIT-C) 1. How often do you have a drink containing alcohol?: Never 3. How often do you have six or more drinks on one occasion?: Never Total Score: 0 Score Reviewed/Action Taken: Yes KILEY-7 AMB Questionnaire KILEY-7 Date KILEY - 7 assessed: 01/31/24 Feeling nervous, anxious, or on edge: 0 = Not at all Not being able to stop or control worryin = Not at all Worrying too much about different things: 0 = Not at all Trouble relaxin = Not at all Being so restless that it is hard to sit still: 0 = Not at all Becoming easily annoyed or irritable: 0 = Not at all Feeling afraid as if something awful might happen: 0 = Not at all Total KILEY-7 score (0-4 normal; 5-9 mild; 10-14 moderate; 15-21 severe): 0 Source: Developed by Drs. Carlos Etienne, Juana Lezama, Raz Kline and colleagues, with an educational radha from [employer]. KILEY-7 Assessment Billing KILEY-7 Assessment Tool: KILEY-7 Assessment 83113 Review of Systems Const Reports as per HPI Physical exam (Primary Care) Vital Signs: Last Vital Signs Pulse 87 01/31/24 09:59 BP 118/74 01/31/24 09:59 Pulse Ox 93 01/31/24 09:59 Oxygen Delivery Method Room Air 01/31/24 09:59 BMI result Body Mass Index 37.9 Tobacco/Smoking Status: Tobacco use Status Tobacco use date assessed 10/08/23 01/31/24 10:02 Patient Tobacco Use Status Former Tobacco user 01/31/24 10:02 Tobacco use type Cigarette 01/31/24 10:02 e-Cigarette/Vaping Use Currently Using 01/31/24 10:02 PHQ-9: PHQ-9 Score PHQ-9: Total score 0 01/31/24 10:23 Depression Screening Interpretation: Negative Thrive Assessment: Date of Thrive Assessment Date Thrive assessed 01/31/24 01/31/24 10:02 Currently or been in a relationship where the following occur: I choose not to answer Const General: cooperative Nutritional Appearance: obese Orientation/consciousness: patient oriented x3 Resp Effort & Inspection: normal respiratory effort Auscultation: clear to auscultation bilaterally and diminished lung sounds Cardio Rate: regular rate Rhythm: regular rhythm Heart sounds: S1 normal heart sound present, S2 normal heart sound present and Murmur heart sound present systolic Neuro General: patient oriented x3 Psych Appearance: grossly normal Mental Status: mental status grossly normal Speech and movement: Normal speech and movement present Affect: normal affect Attitude: cooperative Thought process: Normal thought process present Thought content: Normal thought content present Insight: Good insight present (Psych) Judgement: Good judgement present (Psych) Assessment and Plan Assessment & Plan (1) HTN (hypertension): Code(s): I10 - Essential (primary) hypertension Plan: Stable, labs ordered (2) Obesity: Comment: (Obese, Male, Over 50yo, Smoker - patient is at increased risk for JANN/Sleep Apnea - advise patient further discuss sleep testing with PCP Code(s): E66.9 - Obesity, unspecified Plan: Labs ordered (3) Systolic murmur: Code(s): R01.1 - Cardiac murmur, unspecified Plan The patient agreed to the use of a medical officer for this encounter. Scribed for ADOLFO Loza- by Elise Freeman medical officer, on 01/31/2024 at 10:15 EST. Orders: Orders Complete Blood Count Auto Diff Today E66.9 - Obesity, unspecified, I10 - Essential (primary) hypertension Comprehensive [place]. Panel Fast Today E66.9 - Obesity, unspecified, I10 - Essential (primary) hypertension UA CC w/rflx Micro + Cult Today E66.9 - Obesity, unspecified, I10 - Essential (primary) hypertension TSH reflex Free T4 Today E66.9 - Obesity, unspecified, I10 - Essential (primary) hypertension Lipid Panel Today E66.9 - Obesity, unspecified, I10 - Essential (primary) hypertension CA echo transthoracic complete Today I10 - Essential (primary) hypertension, R01.1 - Cardiac murmur, unspecified Coding Level of Care Code Est Pt Level 3 (38811) Diagnoses HTN (hypertension) I10 Obesity E66.9 Systolic murmur R01.1 Additional Codes KILEY-7 Assessment Billing - KILEY-7 Assessment Tool: KILEY-7 Assessment [id number] ([id number])
== END 2024-01-31 10:30 | disposition home or self-care (01) ==
PROVIDERS: PCP Nurse Practitioner Family; Visit Provider Nurse Practitioner Family
DX: I10 Essential (primary) hypertension (principal); E66.9 Obesity, unspecified; R01.1 Cardiac murmur, unspecified; Z68.37 Body mass index [BMI] 37.0-37.9, adult
CPT/HCPCS: 99213

== ENCOUNTER → 2024-02-26 07:57 | Outpatient (REF) | payer MEDICARE, SELFPAY ==
--- NOTE | 2024-02-26 07:59 | CA_ITS ---
Transthoracic Echocardiogram Patient (Last, First, Middle): Ramy Felix, Gender: Male Date of : 1955 Age: 68 Procedure Date: 02/26/2024 Procedure Type: Transthoracic Echocardiogram Location: OP Height: 180.34 cm Weight: 131.54 kg BSA: 2.47 m2 Heart Rate: bpm BP: 130 / 80 mmHg County Historian: Referring MD: Mando Dean [facility] Symptoms: R01.1 - Cardiac murmur, unspecified Study Quality: Fair ECG Rhythm: Sinus Conclusions: - The left ventricular systolic function is normal. The calculated ejection fraction is 55% by biplane method. - There is mild calcification of the aortic valve. - No obvious valvular pathology seen on this study. Findings Left Ventricle Normal left ventricular cavity size. There is moderately increased left ventricular wall thickness. The left ventricular systolic function is normal. The calculated ejection fraction is 55% by biplane method. There is no evidence of regional wall motion abnormalities. Evidence suggests grade I (mild) diastolic dysfunction. Right Ventricle Normal right ventricular cavity size and systolic function. Atria Both atria are normal in size. Aortic Valve The aortic valve was not well visualized. There is mild calcification of the aortic valve. There is no aortic valve stenosis. There is no aortic valve regurgitation. Mitral Valve The mitral valve appears normal. There is no mitral valve regurgitation. There is no mitral valve stenosis. Pulmonic Valve The pulmonic valve is likely normal. Tricuspid Valve There is trace tricuspid valve regurgitation. There is no evidence of pulmonary hypertension. Great Vessels The asc aorta is normal in size. Venous The inferior vena cava is normal in size and collapses greater than 50% with inspiration. Pericardium/Pleural There is no evidence of pericardial effusion. Prior Study Comparison No significant change compared to prior study dated: 10/12/2020. Recommendations, Care & Conclusions No obvious valvular pathology seen on this study. Measurements 2D Linear Measurements IVSd: 1.39 0.6-0.9/0.6-1.0 cm LVIDd: 4.27 3.9-5.3/4.2-5.9 cm LVIDd Index: 1.73 2.4-3.2/2.2-3.1 cm/m2 LVIDs: 2.89 2.0-3.6 cm LVPWd: 1.37 0.7-1.1 cm Ao Root: 3.70 2.1-3.5 cm LA Diam: 4.00 2.7-3.8/3.0-4.0 cm LAIDs Index: 1.62 1.5-2.3 cm/m2 LV Mass: 280.36 67-162/88-224 g LV Mass Index: 113.51 43-95/49-115 g/m2 LVOT Diam: 2.50 3.0+(-)1.3 cm 2D Systolic Function EF 4C: 55.10 >55% EF 2C: 56.20 >55% EF BiP: 54.60 >55% Mitral Valve MV Pk E: 0.93 MV Decel Time: 243.00 E'Lateral: 6.53 E'Medial: 6.85 E/E' Med: 13.60 E/E' Lat: 14.20 PHT: 71.00 MVA PHT: 3.10 Decel [place]: 3.83 Aortic Valve AoV Pk Bobby: 1.87 AoV Mn Bobby: 1.25 AoV VTI: 0.43 AoV Pk Grad: 14.00 Aov Mn Grad: 8.00 KENRICK Cont.VTI: 2.82 LVOT LVOT Pk Bobby: 1.05 LVOT Mn Bobby: 0.71 LVOT VTI: 0.25 LVOT Pk Grad: 4.00 LVOT Mn Grad: 3.00 LVOT Diam: 2.50 LVOT Area: 4.91 Diastolic Function MV Pk E: 0.93 E'Medial: 6.85 E/E' Med: 13.60 E' Laterial: 6.53 E/E' Lat: 14.20 Right Ventricle TAPSE (mm): 25.00 Tricuspid Valve TR Pk Bobby: 1.59 TR Pk Grad: 10.00 RA Press: 3.00 RVSP: 13.00 Great Vessels Aorta Ao Root-2D: 3.70 2.0-3.7 cm Ao Asc: 3.40 2.1-3.4 cm Pulmonary Valve PV Pk Bobby: 1.08 Peak PV Grad: 5.00 Updated in Other Vendor System with Status of Final Jacob Trammell MD electronically signed on 02/26/2024 12:44:25 PM with status of Final
== END ==
LOC: HO.CARD 07:57
PROVIDERS: PCP Nurse Practitioner Family; Visit Provider Nurse Practitioner Family
DX: R01.1 Cardiac murmur, unspecified (principal); I10 Essential (primary) hypertension
CPT/HCPCS: 93306

== ENCOUNTER → 2024-02-26 07:59 | Outpatient (BNV) | payer MEDICARE, SELFPAY | PROVIDERS: PCP Nurse Practitioner Family; Visit Provider Internal Medicine | DX: I35.8 Other nonrheumatic aortic valve disorders (principal); I51.89 Other ill-defined heart diseases | CPT/HCPCS: 93306 ==

== ENCOUNTER 2024-06-04 07:41 | Outpatient (REF) | payer MEDICARE, SELFPAY ==
--- NOTE | ~2024-06-04 | US_ITS ---
EXAMINATION: US ABDOMEN ANEURYSM SCREENING HISTORY: I71.43 - Infrarenal abdominal aortic aneurysm, without rupture TECHNIQUE: Ultrasound of the abdominal aorta was performed with color flow and spectral imaging. COMPARISON: Comparison is made with the prior examination dated 10/16/2023. FINDINGS: Real-time grayscale ultrasound imaging was performed and reviewed. The examination is somewhat limited secondary to body habitus. Proximal abdominal aorta measures 3.5 x 3.6 cm Mid abdominal aorta measures 2.3 x 2.6 cm Distal abdominal aorta measures 4.2 x 4.4cm. Left proximal iliac artery measures 1.9 x 1.9 cm. Right proximal iliac artery measures 1.5 x 2.0cm. US/US abdominal aortic aneurysm IMPRESSION: Stable distal abdominal aortic aneurysm measuring 4.2 x 4.4 cm. Continued follow-up is recommended. Electronically signed by: Carlos Martin MD 06/05/2024 02:15 PM [facility]
== END 2024-06-04 07:42 | disposition home or self-care (01) ==
LOC: HO.US 07:41
PROVIDERS: PCP Nurse Practitioner Family; Visit Provider Surgery Vascular Surgery
DX: Z13.89 Encounter for screening for other disorder (principal)
CPT/HCPCS: 76706

== ENCOUNTER → 2024-06-04 07:42 | Outpatient (BNV) | payer MEDICARE, SELFPAY | PROVIDERS: PCP Nurse Practitioner Family; Visit Provider Radiology Diagnostic Radiology | DX: I71.43 Infrarenal abdominal aortic aneurysm, without rupture (principal) | CPT/HCPCS: 76706 ==

== ENCOUNTER 2024-06-04 08:19 | Outpatient (REF) | payer MEDICARE, SELFPAY ==
[2024-06-04 08:37] LABS: MANUAL DIFF FLAG NO
[2024-06-04 08:59] LABS: Basophils Absolute Auto 0.1 X10*3/uL (0.0-0.2); Basophils Percent Auto 0.7 % (0-2); Eosinophils Absolute Auto 0.3 X10*3/uL (0.0-0.4); Eosinophils Percent Auto 2.8 % (0-4); Hematocrit 47.8 % (42.0-52.0); Hemoglobin 15.6 g/dl (14.0-18.0); Imm Gran Abs Auto 0.01 X10*3/uL (0.00-0.03); Imm Gran Pct Auto 0.1 % (0.0-0.4); Lymphocytes Absolute Auto 2.9 X10*3/uL (1.2-4.9); Lymphocytes Percent Auto 30.5 % (20-40); Mean Corpuscular HGB Conc 32.6 g/dl (31.0-36.0); Mean Platelet Volume 12.6 fL (9.4-12.4); Monocytes Absolute Auto 0.7 X10*3/uL (0.1-1.2); Neutrophils Absolute Auto 5.6 x10*3/uL (2.0-8.3); Neutrophils Percent Auto 58.9 % (45-73); Platelet Count 173 X10*3/uL (160-400); Red Blood Count 4.88 X10*6/uL (4.60-5.80); Red Cell Distribution Width 12.9 % (11.0-16.0); White Blood Count 9.5 X10*3/uL (4.8-10.8)
[2024-06-04 09:08] LABS: Appearance Urine Clear; Color Urine Yellow; Glucose Urine UA Negative (Negative); Leukocyte Esterase Urine Trace (Negative); Nitrite Urine Negative (Negative); Specific Gravity - Urine >= 1.030 (1.005-1.025); UMIC TRIGGER UACC YES; Urine Blood Negative (Negative); Urine Ketones Negative (Negative); Urine Protein Negative (Neg-Trace)
[2024-06-04 09:11] LABS: Bacteria Urine None Seen (None Seen); Hyaline Casts Urine 0-2 /LPF (0-2); RBC Urine 0-2 /HPF (0-2); Squamous Epithelial Cell Urine 0-2 /HPF (0-2); WBC Urine 0-5 /HPF (0-5)
[2024-06-04 09:28] LABS: Alanine Aminotransferase 38 U/L (0-40); Alkaline Phosphatase 66 U/L (39-117); Anion Gap 14 (12-20); Aspartate Amino Transferase 30 U/L (5-37); Bilirubin Total 0.5 mg/dL (0.0-1.0); Blood Urea Nitrogen 13 mg/dL (9-16); Calcium 9.2 mg/dL (8.4-10.2); Carbon Dioxide 24 mmol/L (22-29); Chloride 107 mmol/L (96-108); Cholesterol 133 mg/dL (<200); Estimated Glomerular Filt Rate > 60; Glucose Fasting 118 mg/dL (60-99); HDL Cholesterol 38 mg/dL (>40); LDL Cholesterol Calculated 66 mg/dL (<100); Sodium 141 mmol/L (135-145); Total Protein 7.8 g/dL (6.5-8.0); Triglycerides 148 mg/dL (<150)
[2024-06-04 09:44] LABS: TSH reflex Free T4 1.27 uIU/mL (0.32-4.0)
== END 2024-06-04 08:20 | disposition home or self-care (01) ==
LOC: HO.LAB 08:19
PROVIDERS: PCP Nurse Practitioner Family; Visit Provider Nurse Practitioner Family
DX: E66.9 Obesity, unspecified (principal); I10 Essential (primary) hypertension
CPT/HCPCS: 36415; 76706; 80053; 80061; 81001; 81003; 84443; 85025

== ENCOUNTER 2024-06-19 10:54 | Outpatient (AMB) | payer MEDICARE, SELFPAY ==
--- NOTE | 2024-06-19 10:55 | MHC.OFFVIS ---
Vital Signs 06/19/24 10:56 Height 5 ft 11 in Weight 272 lb BMI 37.9 Intake Visit Reasons: 6 mo follow up AAA 06/04/24 Intake Note: 6 mo follow up AAA 06/04/24, no complaints Accompanied by: Self / Same As Patient Allergies ragweed pollen [RAGWEED] Allergy (Unknown, Verified 06/19/24 10:59) UNK DUST Allergy (Unknown, Uncoded 06/19/24 10:59) UNK HPI HPI 6 mo follow up AAA 06/04/24: Details: Very pleasant 68-year-old gentleman presents for routine surveillance follow-up regarding his aortic aneurysm. This was actually worked up by his primary care team where it was a screening ultrasound. Has a known history of smoking and just prior to his last visit he quit smoking. He has not smoked for nearly 7 months. Prior to that was smoking about a half a pack per day. He has had no interval changes. Doing relatively well. Now for routine surveillance follow-up. He is being maintained on an aspirin and statin [facility] Medical History Infrarenal abdominal aortic aneurysm (AAA) without rupture HTN (hypertension) Hypertensive retinopathy Dyslipidemia Hidradenitis suppurativa History of basal cell carcinoma (BCC) Nicotine dependence, cigarettes, uncomplicated Obesity Surgical History History of Mohs micrographic surgery for skin cancer History of colonoscopy Social History Housing: Other Alcohol intake: current Alcohol intake frequency: holidays/special occasions only Patient Tobacco Use Status: Former Tobacco user Tobacco use type: Cigarette Cigarettes Per Day: 5 Years Smoked: (onset 18yo, x 47 years at 3/4ppd - 35pyh) e-Cigarette/Vaping Use: Currently Using Second Hand Smoke Exposure: No service: No Current occupational status: employed 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 Cognitive needs: No Hearing needs: No Vision needs: No Review of Systems Const All systems reviewed & are unremarkable except as noted in HPI and below Reports no additional complaints ENT Reports Normal hearing present Card Denies chest pain, Denies chest pain at rest, Denies chest pain with activity and Denies pedal edema Resp Denies cough GI Denies abdominal pain Musc Denies abnormal gait, Denies muscle cramps and Denies radiating pain into limb Skin/Breast Denies skin ulcer and Denies wounds Neuro Reports Normal hearing present and Denies abnormal gait Psych Reports no additional complaints Physical Exam Vital Signs: BMI result Body Mass Index 37.9 Const General: cooperative, healthy appearing and comfortable Orientation/consciousness: oriented to person, oriented to place and oriented to time HEENT Head: Yes normal to inspection Neck Neck: Yes normal visual inspection Carotids: no bruits Chest Chest palpation & inspection: normal inspection of the chest Resp Effort & Inspection: normal respiratory effort and able to speak in complete sentences Auscultation: clear to auscultation bilaterally, no crackles, no rales, no rhonchi and no wheezes Cardio Rate: regular rate Rhythm: regular rhythm Heart sounds: S1 normal heart sound present and S2 normal heart sound present Bruits: no carotid bruits Peripheral pulses: Peripheral pulses 2+ throughout GI Inspection: Yes normal to inspection Skin Wounds: no wounds Hair: normal Neuro General: oriented to person, oriented to place and oriented to time Cranial nerves: Yes CN's II-XII intact bilaterally and Yes Normal hearing present Cognition (Neuro): normal cognition Motor exam (neuro): 5/5 motor strength present throughout Extrem Other: venous exam: No significant superficial varicosities or spider telangiectasias, minimal edema General: No clubbing, No cyanosis and No edema Psych Appearance: grossly normal Mental Status: mental status grossly normal Speech and movement: Normal speech and movement present Results Reviewed Results Reviewed: Ultrasound dated 06/04/2024 demonstrates aortic aneurysm measuring 4.2 x 4.4 cm. Written report and images were reviewed. Assessment & Plan Assessment & Plan (1) Infrarenal abdominal aortic aneurysm (AAA) without rupture: Comment: (Infrarenal AAA measuring 4.4 on 06/04/2024 ultrasound) Code(s): I71.43 - Infrarenal abdominal aortic aneurysm, without rupture Category: Medical Plan: In short patient has radiologic evidence of a AAA on ultrasound of 4.4 cm. This does appear to be similar to his prior size.. We have discussed the pathophysiology of aortic aneurysms and the risk of ruptures. We have discussed rupture risk based on size. In addition we have discussed conservative measures and risk factor modification for prevention of increase in size of the aneurysm. I did congratulate him on not smoking for nearly 7 months and encouraged him to resist the temptation to smoke. the patient is scheduled for surveillance follow-up in approximately 1 year. Thank you for allowing us to participate in the care of this patient Orders: Orders US abdominal aortic aneurysm 1 Year I71.43 - Infrarenal abdominal aortic aneurysm, without rupture Coding Level of Care Code Est Pt Level 4 (35881) Complex EM visit Add On G2211 Diagnoses Infrarenal abdominal aortic aneurysm (AAA) without rupture I71.43
[2024-06-19 10:56] VITALS: BMI 37.9
== END 2024-06-19 11:09 | disposition home or self-care (01) ==
PROVIDERS: PCP Nurse Practitioner Family; Visit Provider Surgery Vascular Surgery
DX: I71.43 Infrarenal abdominal aortic aneurysm, without rupture (principal)
CPT/HCPCS: 99214; G2211

== ENCOUNTER → 2024-06-19 10:54 | Outpatient (BNVA) | payer MEDICARE, SELFPAY | PROVIDERS: PCP Nurse Practitioner Family; Visit Provider Surgery Vascular Surgery | DX: I71.43 Infrarenal abdominal aortic aneurysm, without rupture (principal) | CPT/HCPCS: 99212 ==

== ENCOUNTER 2024-07-31 09:51 | Outpatient (AMB) | payer MEDICARE, SELFPAY ==
[2024-07-31 09:53] VITALS: BP 118/72; PULSE 86; RESP 17; O2SAT 96; BMI 41.2
--- NOTE | 2024-07-31 09:53 | A.OFFPC_ITS ---
Vital Signs 07/31/24 09:53 Height 5 ft 11 in Weight 295 lb 2 oz BMI 41.2 BP 118/72 Blood Pressure Location Rt brachial Position Sitting Respiration 17 Pulse 86 Pulse Source Pulse Oximeter Pulse Oximetry (%) 96 Oxygen Delivery Method Room Air Intake Visit Reasons: 6M F/U Intake Note: Pt is here today for 6 month follow up. Allergies ragweed pollen [RAGWEED] Allergy (Unknown, Verified 07/31/24 09:53) UNK DUST Allergy (Unknown, Uncoded 06/19/24 10:59) UNK Medication List - Last Reconciled 07/31/24 by VISHNU AndinoP- albuterol sulfate 90 mcg/actuation 1 inh inhalation QID PRN aspirin (Adult Aspirin Regimen) 81 mg PO DAILY rosuvastatin 10 mg PO DAILY 90 days Tobacco use date assessed: 07/31/24 Fall risk assessment: No Falls in past year Last assessed Fall Risk: 07/31/24 Dental Screening Dental Screen Date: 07/31/24 Did you have a dental visit in the last 12 months?: No Did you have a dental problem in the last 6 months where you did not have access to dental care?: No Was dental information given to patient?: No HPI 6M F/U HPI Details Chief Complaint The patient presents for medical weight management consultation and evaluation of a systolic heart murmur. History of Present Illness The patient is a 68-year-old male presenting with morbid obesity for management. He denies any accompanying symptoms such as chest pain or shortness of breath. The focus is on initiating a GLP-1 agonist to assist with weight reduction. The patient is also noted to have a faint systolic heart murmur with clear bilateral lung sounds and normal S1 and S2 (echo last year). He is counseled on fasting prerequisites before proceeding with blood work. Social History - The patient is morbidly obese, indicat ing potential lifestyle and dietary influences requiring intervention through medical weight management. Health Maintenance - Discussions regarding medical weight m anagement, specifically through GLP-1 agonist treatments. - Blood tests ordered with instruction f or fasting beforehand. Review of Systems - Cardiovascular: Denies chest pain. - Respiratory: Denies shortness of breat h. - General: Denies edema. Physical Exam General: Cooperative, healthy appearing, comfortable, no acute distress and well developed, morbidly obese Orientation: Patient oriented x3 Limitations: No limitations Head: Normal to inspection Ears: Hearing grossly normal bilaterally Nose: Normal external nose present Face and sinus: Normal facial exam Eyes: Appearance normal, both eyes and all related structures Neck: Normal visual inspection and Yes full ROM Respiratory: Normal respiratory effort and able to speak in complete sentences. Clear to auscultation bilaterally Cardiovascular: Regular rate and rhythm. Faint systolic murmur. Normal S1 and S2 GI: Normal to inspection. Soft to palpation and nontender Skin: No rashes or lesions noted Neuro: Patient oriented x3 Extremities: Normal to inspection Results Plan The current plan involves managing morbid obesity through initiation of GLP-1 agonist therapy. I highlighted the potential benefits of this approach and instructed the patient on the necessary fasting before laboratory assessments. Observation of his systolic heart murmur will continue without immediate intervention, as there are no acute symptoms noted. Discussion Notes I discussed the plan for using GLP-1 agonist therapy as part of the medical weight management strategy to address the patient's obesity. We went over the anticipated benefits of weight reduction and the patient's role in fasting prior to laboratory tests. The patient understood the lack of immediate treatment for the systolic murmur and agreed to comply with the current observations. I will conduct follow-ups based on test results and symptom monitoring. Patient Instructions - Fast before receiving the ordered bloo d tests. - Engage in medical weight management as directed. - Report any new symptoms, such as chest pain or shortness of breath, if they develop. - Follow the plan discussed regarding we ight management therapies. [facility] Medical History Infrarenal abdominal aortic aneurysm (AAA) without rupture HTN (hypertension) Hypertensive retinopathy Dyslipidemia Hidradenitis suppurativa History of basal cell carcinoma (BCC) Nicotine dependence, cigarettes, uncomplicated Obesity Surgical History History of Mohs micrographic surgery for skin cancer History of colonoscopy Social History Housing: Other Alcohol intake: current Alcohol intake frequency: holidays/special occasions only Patient Tobacco Use Status: Former Tobacco user Tobacco use type: Cigarette Cigarettes Per Day: 5 Years Smoked: (onset 18yo, x 47 years at 3/4ppd - 35pyh) e-Cigarette/Vaping Use: Currently Using Second Hand Smoke Exposure: No service: No Current occupational status: employed 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 1. Little interest or pleasure in doing things: not at all 2. Feeling down, depressed, or hopeless: not at all 3. Trouble falling or staying asleep, or sleeping too much: several days 4. Feeling tired or having little energy: not at all 5. Poor appetite or overeating: not at all 6. Feeling bad about yourself - or that you are a failure or have let yourself or your family down: not at all 7. Trouble concentrating on things, such as reading the newspaper or watching television: not at all 8. Moving or speaking so slowly that other people could have noticed. Or the op posite - being so fidgety or restless that you have been moving around a lot more than usual: not at all 9. Thoughts that you would be better off or of hurting yourself in some way: not at all Total score: 1 Depression Screening Interpretation: Negative Depression Screening Done: Yes 49327 - PHQ-9 Billing: Yes Source: Developed by Drs. Carlos Etienne, Juana Lezama, Raz Kline and colleagues, with an educational radha from [employer]. Thrive Questionnaire Date Thrive assessed: 07/31/24 I am a: Patient What is your living situation today?: I have a steady place to live Within the past 12 months, did the food you bought not last and you didn't have the money to get more?: Never true Within the past 12 months, did you worry whether your food would run out before you got money to buy more?: Never true Do you have trouble paying for medicines?: No Do you have trouble getting transportation to medical appointments?: No Do you have trouble paying your heating and electricity bill?: No Do you have trouble taking care of your child, family member or friend?: No Do you have trouble with day-to-day activities such as bathing, preparing meals, shopping, managing finances, etc.?: No Are you currently unemployed and looking for a job?: No Are you interested in more education?: No Please select the resources that you would like help with: None Currently or been in a relationship where the following occur: No concerns reported THRIVE Score: 0 AUDIT C Alcohol Use Questionnaire (AUDIT-C) 1. How often do you have a drink containing alcohol?: Never 3. How often do you have six or more drinks on one occasion?: Never Total Score: 0 Score Reviewed/Action Taken: Yes KILEY-7 AMB Questionnaire KILEY-7 Date KILEY - 7 assessed: 07/31/24 Feeling nervous, anxious, or on edge: 0 = Not at all Not being able to stop or control worryin = Not at all Worrying too much about different things: 0 = Not at all Trouble relaxin = Not at all Being so restless that it is hard to sit still: 0 = Not at all Becoming easily annoyed or irritable: 0 = Not at all Feeling afraid as if something awful might happen: 0 = Not at all Total KILEY-7 score (0-4 normal; 5-9 mild; 10-14 moderate; 15-21 severe): 0 Source: Developed by Drs. Carlos Etienne, Juana Lezama, Raz Kline and colleagues, with an educational radha from [employer]. KILEY-7 Assessment Billing KILEY-7 Assessment Tool: KILEY-7 Assessment 80054 Physical exam (Primary Care) Vital Signs: Last Vital Signs Pulse 86 07/31/24 09:53 Resp 17 07/31/24 09:53 BP 118/72 07/31/24 09:53 Pulse Ox 96 07/31/24 09:53 Oxygen Delivery Method Room Air 07/31/24 09:53 BMI result Body Mass Index 41.2 Tobacco/Smoking Status: Tobacco use Status Tobacco use date assessed 07/31/24 07/31/24 09:58 Patient Tobacco Use Status Former Tobacco user 07/31/24 09:58 Tobacco use type Cigarette 07/31/24 09:58 e-Cigarette/Vaping Use Currently Using 07/31/24 09:58 PHQ-9: PHQ-9 Score PHQ-9: Total score 1 07/31/24 09:58 Depression Screening Interpretation: Negative Thrive Assessment: Date of Thrive Assessment Date Thrive assessed 07/31/24 07/31/24 09:58 Currently or been in a relationship where the following occur: No concerns reported Coding Level of Care Code Est Pt Level 3 (38317) Diagnoses Screening for colon cancer Z12.11 HTN (hypertension) I10 Screening PSA (prostate specific antigen) Z12.5 Morbid obesity E66.01 Additional Codes KLIEY-7 Assessment Billing - KILEY-7 Assessment Tool: KILEY-7 Assessment 71098 ([id number]) PHQ-9 - 32190 - PHQ-9 Billing: Yes ([id number]) Assessment & Plan Assessment & Plan (1) Screening for colon cancer: Code(s): Z12.11 - Encounter for screening for malignant neoplasm of colon Category: Medical (2) HTN (hypertension): Code(s): I10 - Essential (primary) hypertension Category: Medical Plan: . (3) Screening PSA (prostate specific antigen): Code(s): Z12.5 - Encounter for screening for malignant neoplasm of prostate Category: Medical (4) Morbid obesity: Code(s): E66.01 - Morbid (severe) obesity due to excess calories Category: Medical Plan . Orders: Orders TSH reflex Free T4 Today I10 - Essential (primary) hypertension UA CC w/rflx Micro + Cult Today I10 - Essential (primary) hypertension Complete Blood Count Auto Diff Today I10 - Essential (primary) hypertension Comprehensive [place]. Panel Fast Today I10 - Essential (primary) hypertension Lipid Panel Today I10 - Essential (primary) hypertension Prostate Specific Antigen Scr Today Z12.5 - Encounter for screening for malignant neoplasm of prostate Referrals Gastroenterology Referral Z12.11 - Encounter for screening for malignant neoplasm of colon Medical Weight Management Referral E66.01 - Morbid (severe) obesity due to excess calories
== END 2024-07-31 10:48 | disposition home or self-care (01) ==
PROVIDERS: PCP Nurse Practitioner Family; Visit Provider Nurse Practitioner Family
DX: I10 Essential (primary) hypertension (principal); E66.01 Morbid (severe) obesity due to excess calories; Z68.41 Body mass index [BMI] 40.0-44.9, adult; Z12.11 Encounter for screening for malignant neoplasm of colon; Z12.5 Encounter for screening for malignant neoplasm of prostate

== ENCOUNTER → 2024-07-31 09:51 | Outpatient (BNVA) | payer MEDICARE, SELFPAY | PROVIDERS: PCP Nurse Practitioner Family; Visit Provider Nurse Practitioner Family | DX: I10 Essential (primary) hypertension (principal); E66.01 Morbid (severe) obesity due to excess calories; Z68.41 Body mass index [BMI] 40.0-44.9, adult; Z71.6 Tobacco abuse counseling; Z87.891 Personal history of nicotine dependence | CPT/HCPCS: 96127; 99212 ==

== ENCOUNTER → 2024-08-11 08:26 | Outpatient (BNVA) | payer MEDICARE, SELFPAY | PROVIDERS: PCP Nurse Practitioner Family; Visit Provider Surgery ==

== ENCOUNTER 2024-08-19 07:59 | Outpatient (AMB) | payer MEDICARE, SELFPAY ==
--- NOTE | 2024-08-19 08:19 | A.OFFVIS_ITS ---
VS Expanded 08/19/24 08:36 Height 5 ft 11 in Weight 289 lb 6 oz BMI 40.4 Body Fat % 39.8 Body Fat Mass 115.4 Fat Free Mass 174.2 Visceral Fat Rating 27 Body Water % 41.4 Body Water Mass 119.8 Basal Metabolic Rate/Score 2,418 Intake Visit Reasons: [facility] Allergies ragweed pollen [RAGWEED] Allergy (Unknown, Verified 08/19/24 08:19) UNK DUST Allergy (Unknown, Uncoded 08/19/24 08:19) UNK Medication List - Last Reconciled 08/19/24 by Valeriano Blanco MD albuterol sulfate 90 mcg/actuation 1 inh inhalation QID PRN aspirin (Adult Aspirin Regimen) 81 mg PO DAILY [FISH OIL PO] multivitamin 1 tab PO DAILY rosuvastatin 10 mg PO DAILY 90 days [VITAMIN B12 PO] HPI HPI [facility]: Details: Start time: 8.12am, End time: 8.57am ?I spent 40 minutes speaking with the patient on the phone plus an additional 5 minutes reviewing and updating records for a total of 45 minutes HPI Comments Details: Previous weight loss efforts: Self diets Wakes up: 5am, Sleeps: 8pm Breakfast: skips Lunch: occasionally, 12pm (sandwich) Dinner: 5pm (chicken, fish, asparagus) Snacks: before and after lunch (nuts, raisins), after dinner (ice cream) Exercise: none Beverages: Coffee (2 cups/d with cream and sugar), iced tea: 1 cup/day with sugar, soda: regular Pepsi daily, juice: 2/wk, (orange/tomato juice), ETOH: none PFS Medical History (Updated 08/19/24 @ 08:23 by Valeriano Blanco MD) Asthma Hyperlipidemia Infrarenal abdominal aortic aneurysm (AAA) without rupture HTN (hypertension) Hypertensive retinopathy Dyslipidemia Hidradenitis suppurativa History of basal cell carcinoma (BCC) Nicotine dependence, cigarettes, uncomplicated Obesity Surgical History History of Mohs micrographic surgery for skin cancer History of colonoscopy Family History (Updated 08/11/24 @ 08:55 by Araceli Patino SECURITY SHIFT MANAGER) Mother Dementia Father Dementia Sister Cataracts, both eyes Daughter Heart problem Social History Housing: Other Alcohol intake: current Alcohol intake frequency: holidays/special occasions only Patient Tobacco Use Status: Former Tobacco user Tobacco use type: Cigarette Cigarettes Per Day: 5 Years Smoked: (onset 18yo, x 47 years at 3/4ppd - 35pyh) e-Cigarette/Vaping Use: Currently Using Second Hand Smoke Exposure: No service: No Current occupational status: employed 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 Cognitive needs: No Hearing needs: No Vision needs: No Telehealth Telehealth Telehealth Platform: Telephone Location of provider rendering services: practice address Location of patient: address on file Patient Identification confirmed using: Name, : Yes Telehealth method: voice only Patient verbally consented to treatment: Yes Patient verbally consented to billing insurance company: Yes Patient informed of any privacy concerns related to visit: Yes Minutes spent on Phone/Video with Pt.: 45 Assessment & Plan Assessment & Plan (1) Morbid obesity: Code(s): E66.01 - Morbid (severe) obesity due to excess calories Category: Medical Plan: 1.?Nutritional counseling. Start with 2 CELEBRATE REBUILD protein (buy at [facility] gift [facility]) shakes (ONE scoop EACH in 8oz low fat unsweetened almond milk each) at 6am-8am and 9am-11am, 2 protein bars (CELEBRATE protein bars, buy at [facility] [employer]) at 12pm-2pm and 3pm-5pm, dinner at 6pm (10 forks of protein and 10 forks of salad/vegetables) AND one more protein bar after dinner at 9pm-11pm. So you do 2 protein shakes, 2 protein bars and one meal per day. Meal to include lean meat (beef, fish, pork, turkey, chicken), or andorran yogurt, or egg whites, or beans with a salad with olive oil and fruits (berries, pears, apples, kiwi). Avoid salt, breads, potatoes, rice, pasta, desserts. 3. Each shake would be drunk slowly, like coffee in a period of 2 hours. You can add your coffee into the shake to avoid using ceam and sugar. 4. Cut each bar in 4 pieces and eat each piece in 30min ?to make each bar last 2 hours. 5. I emphasized the importance of measuring accurately the food portion and measure it when serving the food in plate 6. The meal portions include 10 full-size forks of meat and 10 full-size forks of salad. You always eat the meat portion but you can replace up to 5 forks for salad/vegetables with rice, potatoes or pasta, or a fruit ?if you like. The less you do it the better weight loss will be. 7. One full-size fork is what it can be scooped on the fork without falling aside and not what can be bit with the fork. Use regular forks like those you find in a typical restaurant. 8.? Please buy the body composition scale we discussed and send me weight measurements as soon as possible and then once a week. Always include your diet and exercise plan. 9. Start walking outside daily, tracking calories with a goal of 300 calories per day, daily. Goal is to burn 2000 calories per week on exercise, which means either 300 calories daily, or 400 calories 5 days per week, or 500 calories 4 days per week, or 650 calories 3 days per week. 10. The best choice would be to purchase a stationary bike at home that can track calories. Let me know if you do so I can give you an exercise plan. 11. Goal is to lose at least 1.5-2lbs per week 12. Goal to lose at least 10% of your weight, which is about 30lbs. Minimum weight goal: 260lbs 13. Please follow the diet plan exactly without any change. If you don't like something about the plan or you feel hungry you need to communicate with me so I can help you revise the plan. You should not change the plan yourself
[2024-08-19 08:36] VITALS: BMI 40.4
== END 2024-08-19 08:57 | disposition home or self-care (01) ==
LOC: HO.HBS 07:59
PROVIDERS: PCP Nurse Practitioner Family; Visit Provider Surgery
DX: E66.813 Obesity, class 3 (principal); Z68.41 Body mass index [BMI] 40.0-44.9, adult
CPT/HCPCS: 99204

== ENCOUNTER → 2024-10-17 14:13 | Outpatient (BNVA) | payer MEDICARE, SELFPAY | PROVIDERS: PCP Nurse Practitioner Family; Visit Provider Physician Assistant Surgical ==

== ENCOUNTER 2025-01-01 07:22 | Outpatient (REF) | payer MEDICARE, SELFPAY ==
--- NOTE | ~2025-01-01 | CT_ITS ---
CLINICAL HISTORY: F17.210 - Nicotine dependence, cigarettes, uncomplicated CT lung cancer screening (LDCT) Comparison: 12/20/2023 Technique: Axial CT images of the chest using low-dose technique. Referring provider counseled the patient on shared decision-making for LDCT screening. Additional counseling was provided on smoking cessation. Effective radiation dose total: DLP 76.4 mGycm, CTDIvol 2.2 mGy. Findings: Smoking-related lung changes. Qmyn-ei-jawuchpb right middle lobe/lingular scarring. No significant change in small number of left juxtapleural and left upper lobe nodules (the largest is a left upper nodule that measures up to 3 mm on series 6, image 56). No new lung nodule identified. Coronary artery calcifications: None Eonk-xi-agcieuac pancreatic atrophy. Other: None Impression: LungRADS 2 - Benign Appearance: Continue annual screening with low dose Chest CT in 12 months. ##L2## Category 1: Normal; continue annual screening Category 2: Benign appearance or behavior, continue annual screening Category 3: Probably benign, [address] recommended Category 4A: Suspicious, [address] recommended; may consider PET/CT Category 4B: Suspicious, Additional diagnostics and/or tissue sampling recommended Category 4X: Suspicious, Additional diagnostics and/or tissue sampling recommended Category 0: Recalls (incomplete screen due to Incomplete coverage, Noise, Respiratory motion, Expiration, Obscured by acute abnormality) This document has been electronically signed by: Sherita Chaparro MD on 01/01/2025 09:08:11
--- OUTSIDE RECORDS SUMMARY | 2025-01-01 07:25 | XMS_ITS | Patient Health Record ---
Author Organization [facility] Address [address] [place] [address] Care Team Providers Care Biomedical Equipment Tech Name Role Phone Elis PARRA, Kayy Primary Care Provider Carlos Sheehan Unavailable [phone] Reason For Referral No Information Medications Medication SIG (Take, Route, Frequency, Duration) Notes Start Date End Date Status Prostate Health Acti ve Vitamin D Active Multi Vitamin/Minerals Active Colyte w Flavor Packs 240 GM as directed Orally as directed for 1 day(s) 09/03/2014 Active Problems Problem Type SNOMED Code ICD Code Onset Dates Problem Status W/U Status Risk Notes Problem Pre-surgery evaluation ([id number]) Other specified pre-operative examination (V72.83) Active confirmed Problem Colon cancer screening (V76.51) Active confirmed Plan Of Treatment Future Test Test Name Order Date COLONOSCOPY 09/02/2014 Insurance Providers Payer Name Payer Address Payer Phone Subscriber Number Group Number Insured Name Patient Relationship to Insured Coverage Start Date Coverage End Date [facility] [address] [place] [address] [phone] [id number] ROB ARROYO Self - patient is the insured Medical (General) History Medical History History ICD Code Denies IA,DM,CVA,Lung disease,renal dise ase
== END 2025-01-01 07:23 | disposition home or self-care (01) ==
LOC: HO.CT 07:22
PROVIDERS: PCP Nurse Practitioner Family; Visit Provider Physician Assistant Medical
DX: Z12.2 Encounter for screening for malignant neoplasm of respiratory organs (principal); F17.210 Nicotine dependence, cigarettes, uncomplicated
CPT/HCPCS: 71271

== ENCOUNTER → 2025-01-01 07:25 | Outpatient (BNV) | payer MEDICARE, SELFPAY | PROVIDERS: PCP Nurse Practitioner Family; Visit Provider Radiology Diagnostic Radiology | DX: F17.210 Nicotine dependence, cigarettes, uncomplicated (principal) | CPT/HCPCS: 71271 ==

== ENCOUNTER 2025-04-01 09:57 | Outpatient (AMB) | payer MEDICARE, SELFPAY ==
--- NOTE | 2025-04-01 10:00 | MHC.OFFWIV ---
Intake Vital Signs 04/01/25 10:01 Height 5 ft 11 in Weight 213 lb BMI 29.7 BP 110/62 Blood Pressure Location Rt brachial Position Sitting Pulse 75 Pulse Source Pulse Oximeter Temp 97.7 F Temp Source Oral Pulse Oximetry (%) 100 Oxygen Delivery Method Room Air Intake Visit Reasons: ep having a reaction tofood diarrhea and heartburn Intake Note: pt presents with watery diarrhea and indigestion since Sunday afternoon after experiencing burping, decreased appetite Patient Tobacco Use Status: Former Tobacco user Allergies ragweed pollen (RAGWEED) Allergy (Unknown, Verified 04/01/25 10:04) UNK DUST Allergy (Unknown, Uncoded 10/17/24 14:56) UNK Do you need a note to return to daycare/school/sports/work: No HPI HPI Comments History of Present Illness Details History of Present Illness - The patient is a 69-year-old male presenting with gastrointestinal symptoms including diarrhea and abdominal pain. - Symptoms began after consuming a meal in [place] 4 days ago, which included suspicious tomato and hopson. - The patient experienced burping, gastric pain, and diarrhea shortly after the meal. - Symptoms persisted, leading to loss of appetite and continued burping. - The patient used loperamide (Imodium) to manage diarrhea, which provided temporary relief. - The patient is on Zepbound but has not experienced similar reactions before. Has been on same dose for 3 months. Review of Systems - Gastrointestinal: Reports diarrhea, gastric pain, burping, and loss of appetite. Denies vomiting, bloody or black stools. - General: Denies fever. All systems reviewed and are unremarkable except as noted in HPI Physical Exam General: Cooperative, healthy appearing, comfortable, no acute distress and well developed Orientation: Patient oriented x3 Limitations: No limitations Head: Normal to inspection Ears: Hearing grossly normal bilaterally Nose: Normal External nose present Face and sinus: Normal facial exam Eyes: Appearance normal, both eyes and all related structures Neck: Normal visual inspection and Yes full ROM Respiratory: Normal respiratory effort and able to speak in complete sentences. Skin: No rashes or lesions noted Neuro: Patient oriented x3 Extremities: Normal to inspection [facility] Medical History (Updated 04/01/25 @ 10:24 by Angelica Zuluaga PA-C) Overweight BMI 32.0-32.9,adult BMI 34.0-34.9,adult Asthma Hyperlipidemia Infrarenal abdominal aortic aneurysm (AAA) without rupture HTN (hypertension) Hypertensive retinopathy Dyslipidemia Hidradenitis suppurativa History of basal cell carcinoma (BCC) Nicotine dependence, cigarettes, uncomplicated Obesity Surgical History History of Mohs micrographic surgery for skin cancer History of colonoscopy Family History (Updated 08/11/24 @ 08:55 by Araceli Patino [facility]) Mother Dementia Father Dementia Sister Cataracts, both eyes Daughter Heart problem Social History Housing: Other Alcohol intake: current Alcohol intake frequency: holidays/special occasions only Patient Tobacco Use Status: Former Tobacco user Tobacco use type: Cigarette Cigarettes Per Day: 5 Years Smoked: (onset 18yo, x 47 years at 3/4ppd - 35pyh) e-Cigarette/Vaping Use: Currently Using Second Hand Smoke Exposure: No service: No Current occupational status: employed Current occupation: [employer] and self employed Cognitive needs: No Hearing needs: No Vision needs: No Physical Exam Vital Signs: Last Vital Signs Temp 97.7 F 04/01/25 10:01 Pulse 75 04/01/25 10:01 BP 110/62 04/01/25 10:01 Pulse Ox 100 04/01/25 10:01 Oxygen Delivery Method Room Air 04/01/25 10:01 BMI result Body Mass Index 29.7 Assessment & Plan Assessment & Plan (1) Diarrhea: Code(s): R19.7 - Diarrhea, unspecified Qualifiers: Diarrhea type: presumed infectious Qualified Code(s): R19.7 - Diarrhea, unspecified Plan: Plan Patient was informed and verbally consented to the use of an ambient scribe for clinic note documentation during this visit. Gastroenteritis - Conduct a GI panel and Helicobacter pylori stool test to identify the causative agent. - Advise hydration with low-sugar electrolyte drinks and monitor for any signs of dehydration or severe symptoms. - If positive, initiate appropriate antibiotic therapy based on test results. (2) Burping: Code(s): R14.2 - Eructation Plan: as above Orders: Orders GI Panel Today R14.2 - Eructation, R19.7 - Diarrhea, unspecified H pylori Ag Stool Today R14.2 - Eructation, R19.7 - Diarrhea, unspecified Coding Level of Care Code Est Pt Level 3 (32880) Diagnoses Diarrhea of presumed infectious origin R19.7 Diarrhea type: presumed infectious Burping R14.2
[2025-04-01 10:01] VITALS: BP 110/62; PULSE 75; TEMP 36.5; O2SAT 100; BMI 29.7
--- OUTSIDE RECORDS SUMMARY | 2025-04-01 11:27 | XMS_ITS | Patient Health Record ---
Author Organization [facility] Address [address] [place] [address] Care Team Providers Care Case Investigator Name Role Phone Elis PARRA, Kayy Primary Care Provider Carlos Shehean Unavailable [phone] Reason For Referral No Information Medications Medication SIG (Take, Route, Frequency, Duration) Notes Start Date End Date Status Prostate Health Acti ve Vitamin D Active Multi Vitamin/Minerals Active Colyte w Flavor Packs 240 GM as directed Orally as directed; Duration: 1 day(s) 09/03/2014 Active Problems Problem Type SNOMED Code ICD Code Onset Dates Problem Status W/U Status Risk Notes Problem Pre-surgery evaluation (833160668) Other specified pre-operative examination (V72.83) Active confirmed Problem Colon cancer screening (567498878) Colon cancer screening (V76.51) Active confirmed Plan Of Treatment Future Test Test Name Order Date COLONOSCOPY 09/02/2014 Insurance Providers Payer Name Payer Address Payer Phone Subscriber Number Group Number Insured Name Patient Relationship to Insured Coverage Start Date Coverage End Date [facility] [address] [place] [address] [id number] ROB ARROYO Self - patient is the insured Medical (General) History Medical History History ICD Code Denies ID,DM,CVA,Lung disease,renal dise ase
== END 2025-04-01 10:27 | disposition home or self-care (01) ==
PROVIDERS: PCP Nurse Practitioner Family; Visit Provider Physician Assistant
DX: R19.7 Diarrhea, unspecified (principal); R14.2 Eructation

== ENCOUNTER → 2025-04-01 09:57 | Outpatient (BNVA) | payer MEDICARE, SELFPAY | PROVIDERS: PCP Nurse Practitioner Family; Visit Provider Physician Assistant | DX: R19.7 Diarrhea, unspecified (principal); R14.2 Eructation; Z87.891 Personal history of nicotine dependence | CPT/HCPCS: 99212 ==

== ENCOUNTER 2025-04-02 06:45 | Outpatient (REF) | payer MEDICARE, SELFPAY ==
--- OUTSIDE RECORDS SUMMARY | 2025-04-02 07:27 | XMS_ITS | Patient Health Record ---
Author Organization [facility] Address [address] [place] [address] Care Team Providers Care Surveillance Observer Name Role Phone Elis PARRA, Kayy Primary Care Provider Carlos Sheehan Unavailable [phone] Reason For Referral No Information Medications Medication SIG (Take, Route, Frequency, Duration) Notes Start Date End Date Status Prostate Health Acti ve Vitamin D Active Multi Vitamin/Minerals Active Colyte w Flavor Packs 240 GM as directed Orally as directed; Duration: 1 day(s) 09/03/2014 Active Problems Problem Type SNOMED Code ICD Code Onset Dates Problem Status W/U Status Risk Notes Problem Pre-surgery evaluation (298022818) Other specified pre-operative examination (V72.83) Active confirmed Problem Colon cancer screening (877783310) Colon cancer screening (V76.51) Active confirmed Plan Of Treatment Future Test Test Name Order Date COLONOSCOPY 09/02/2014 Insurance Providers Payer Name Payer Address Payer Phone Subscriber Number Group Number Insured Name Patient Relationship to Insured Coverage Start Date Coverage End Date [facility] [address] [place] [address] [id number] ROB ARROYO Self - patient is the insured Medical (General) History Medical History History ICD Code Denies [place],DM,CVA,Lung disease,renal dise ase
[2025-04-02 14:48] LABS: E. coli EAEC Not Detected (Not Detect.); E. coli EPEC Not Detected (Not Detect.); E. coli ETEC Not Detected (Not Detect.); E. coli STEC Not Detected (Not Detect.); Shigella sp./EIEC Not Detected (Not Detect.)
== END 2025-04-02 06:46 | disposition home or self-care (01) ==
LOC: HO.HMGCLNP 06:45
PROVIDERS: PCP Nurse Practitioner Family; Visit Provider Physician Assistant
DX: R14.2 Eructation (principal); R19.7 Diarrhea, unspecified
CPT/HCPCS: 87338; 87507

== ENCOUNTER 2025-04-12 07:09 | Emergency (ER) | payer MEDICARE, SELFPAY ==
--- NOTE | ~2025-04-12 | CT_ITS ---
CLINICAL HISTORY: diarrhea 2.[address] abdomen and pelvis with contrast Comparison: Findings: Lung bases are clear without consolidation or effusion. Scattered subcentimeter hypodensities within the liver are too small to characterize though likely reflect hepatic cysts. Gallbladder is dilated without wall edema or adjacent fatty stranding. No cholelithiasis. Spleen, pancreas, and bilateral adrenal glands are within normal limits. Multiple bilateral renal cysts are present. No nephrolithiasis or hydronephrosis. No abdominal or pelvic free fluid. Haziness with scattered nonenlarged lymph nodes are demonstrated throughout the mesentery which is nonspecific. An infrarenal abdominal aortic aneurysm measures up to 3.9 x 4.0 cm. Diffuse pancolonic diverticulosis is present with no definitive areas of fat stranding to suggest acute inflammation. No bowel obstruction, pneumoperitoneum, or pneumatosis. Appendix contains an appendicolith though is not distended and is not associated with surrounding fat stranding. Bladder is unremarkable. Prostate is enlarged and contains central calcifications. no acute osseous abnormality. No acute soft tissue abnormality. IMPRESSION: Mesenteric fat haziness with multiple nonenlarged mesenteric lymph nodes which is nonspecific though can be seen in mesenteric panniculitis. Diffuse diverticulosis without definitive areas to suggest active diverticulitis. Infrarenal abdominal aortic aneurysm measuring up to 4 cm. This document has been electronically signed by: Marlon Garner MD on 04/12/2025 11:53:16
[2025-04-12 07:17] VITALS: BP 111/57; PULSE 87; RESP 18; TEMP 36.8; O2SAT 94; BMI 29.4
--- OUTSIDE RECORDS SUMMARY | 2025-04-12 07:50 | XMS_ITS | Patient Health Record ---
Author Organization [facility] Address [address] [place] [address] Care Team Providers Care Business Banking Manager Name Role Phone Elis PARRA, Kayy Primary Care Provider Carlos Sheehan Unavailable [phone] Reason For Referral No Information Medications Medication SIG (Take, Route, Frequency, Duration) Notes Start Date End Date Status Prostate Health Acti ve Vitamin D Active Multi Vitamin/Minerals Active Colyte w Flavor Packs 240 GM Solution Reconstituted as directed Orally as directed; Duration: 1 day(s) 09/03/2014 Active Social History Social History Additional Details Category Social Info Options Details Miscellaneous: Marital status: Occupation: Audio/video prod ucer--works for the [employer] Notes: 1/2 ppd smoker;no sig alcoho l Problems Problem Type SNOMED Code ICD Code Onset Dates Problem Status W/U Status Risk Notes Problem Pre-surgery evaluation (115806855) Other specified pre-operative examination (V72.83) Active confirmed Problem Colon cancer screening (455611634) Colon cancer screening (V76.51) Active confirmed Plan Of Treatment Future Test Test Name Order Date COLONOSCOPY 09/02/2014 Insurance Providers Payer Name Payer Address Payer Phone Subscriber Number Group Number Insured Name Patient Relationship to Insured Coverage Start Date Coverage End Date [facility] [address] [place] [address] [id number] ROB ARROYO Self - patient is the insured Medical (General) History Medical History History ICD Code Denies SD,DM,CVA,Lung disease,renal dise ase
[2025-04-12 08:00] VITALS: BP 102/69; PULSE 84; RESP 18; TEMP 36.3; O2SAT 94
[2025-04-12 08:18] LABS: Appearance Urine Cloudy; Glucose Urine UA Negative (Negative); PH 5.5 (5.0-9.0); Specific Gravity - Urine >= 1.030 (1.005-1.025); UMIC TRIGGER UACC YES
[2025-04-12 08:21] LABS: Hematocrit 44.6 % (42.0-52.0); Hemoglobin 15.1 g/dl (14.0-18.0); Mean Corpuscular HGB Conc 33.9 g/dl (31.0-36.0); Mean Corpuscular Hemoglobin 33.0 pg (27.0-33.0); Mean Corpuscular Volume 97.4 fL (80.0-98.0); NRBC Abs Auto 0.000 X10*3/uL (0.0-0.012); NRBC Pct Auto 0.0 /100WBC (0.0-0.2); Platelet Count 226 X10*3/uL (160-400); Red Blood Count 4.58 X10*6/uL (4.60-5.80); White Blood Count 7.9 X10*3/uL (4.8-10.8)
[2025-04-12 08:29] LABS: UACC Culture Trigger YES
[2025-04-12 08:35] LABS: Alanine Aminotransferase 21 U/L (0-40); Albumin Level 4.1 g/dL (3.5-5.0); Alkaline Phosphatase 70 U/L (39-117); Anion Gap 14 (12-20); Aspartate Amino Transferase 19 U/L (5-37); Blood Urea Nitrogen 16 mg/dL (9-16); Calcium 9.2 mg/dL (8.4-10.2); Carbon Dioxide 25 mmol/L (22-29); Chloride 102 mmol/L (96-108); Creatinine Clr Calc Pharmacy 89.2; Estimated Glomerular Filt Rate > 60; Potassium 3.6 mmol/L (3.3-5.1); Sodium 137 mmol/L (135-145); Total Protein 7.4 g/dL (6.5-8.0)
[2025-04-12 08:44] LABS: Band Neutrophils Percent 9 % (3-5); Eosinophils Absolute Manual 0.2 X10*3/uL (0.0-0.4); Eosinophils Percent Manual 3 % (0-4); Lymphocytes Absolute Manual 2.2 X10*3/uL (1.2-4.9); Lymphocytes Percent Manual 28 % (20-40); Monocytes Absolute Manual 0.8 X10*3/uL (0.1-1.2); Monocytes Percent Manual 10 % (2-11); Neutrophils Absolute Manual 4.7 X10*3/uL (2.0-8.3); Neutrophils Percent Manual 50 % (45-73)
[2025-04-12 08:45] LABS: Large Platelet PRESENT; RBC Morphology NORMAL; Toxic Vacuolation PRESENT
--- NOTE | 2025-04-12 09:15 | ED_ITS ---
HPI - General Adult General Chief complaint: Nausea/Vomiting/Diarrhea Stated complaint: diarrhea Time Seen by Provider: 04/12/25 08:01 Source: patient, RN notes reviewed and old records reviewed Mode of arrival: ambulatory Limitations: no limitations History of Present Illness ED Provider: Cassie GODOY narrative: Patient is a 69-year-old male with pmhx of infrarenal AAA, HTN, HLD, asthma, smoking presenting to the emergency department with complaint of diarrhea since 03/28 after eating at a restaurant in [place]. He was seen on 04/02, had negative GI panel. Reports ongoing diarrhea since. Denies hematochezia or melena. Denies fevers. Last night he developed what he describes as violent vomiting. Denies current nausea or abdominal pain. Denies any prior abdominal surgeries. Called PCP who advised him to come to the ED. complaint: diarrhea, vomiting Related Data Home Medications ?Medication ?Instructions ?Recorded ?Confirmed multivitamin 1 tab PO DAILY 08/11/2409/26 mecobalamin (vitamin B12) 1,000 1,000 mcg PO DAILY 10/19 mcg chewable tablet omega 3-zhg-bin-fish oil 1,000 mg 1 cap PO DAILY 04/01 (120 mg-180 mg) capsule (Fish Oil) Previous Rx's ?Medication ?Instructions ?Recorded albuterol sulfate 90 mcg/actuation 1 inh inhalation QI D PRN shortness 08/11/23 aerosol inhaler of breath or wheezing #6.7 g elliott aspirin 81 mg tablet,delayed 81 mg PO DAILY #90 tabs 0 06/12/24 release (Adult Aspirin Regimen) rosuvastatin 10 mg tablet 10 mg PO DAILY 90 days #90 t abs 01/06/25 tirzepatide (weight loss) 15 15 mg (0.5 mL) subcut QWE EK #2 mL 03/20/25 mg/0.5 mL subcutaneous solution (Zepbound) Allergies Allergy/AdvReac Type Severity Reaction Status Date / Time ragweed pollen (RAGWEED) Allergy Unknown UNK Verified 04/12/25 07:20 DUST Allergy Unknown UNK Uncoded 10/17/24 14:56 Review of Systems 2 Review of Systems: As per HPI Yes all other systems are reviewed and are negative Constitutional: Constitutional: Reports as per HPI PMFSH Past Medical History Medical History (Updated 04/12/25 @ 13:09 by Ирина Matthews NP) Overweight BMI 32.0-32.9,adult BMI 34.0-34.9,adult Asthma Hyperlipidemia Infrarenal abdominal aortic aneurysm (AAA) without rupture HTN (hypertension) Hypertensive retinopathy Dyslipidemia Hidradenitis suppurativa History of basal cell carcinoma (BCC) Nicotine dependence, cigarettes, uncomplicated Obesity Surgical History History of Mohs micrographic surgery for skin cancer History of colonoscopy Family History Family History (Updated 08/11/24 @ 08:55 by Araceli Patino [facility]) Mother Dementia Father Dementia Sister Cataracts, both eyes Daughter Heart problem Social History Social History Housing: Other Alcohol intake: current Alcohol intake frequency: holidays/special occasions only Patient Tobacco Use Status: Former Tobacco user Tobacco use type: Cigarette Cigarettes Per Day: 5 Years Smoked: (onset 18yo, x 47 years at 3/4ppd - 35pyh) e-Cigarette/Vaping Use: Currently Using Second Hand Smoke Exposure: No Advance Directives: No Advance Directives Information Provided: Yes Do you have a plan to hurt others: No Plan service: No Current occupational status: employed 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 Cognitive needs: No Hearing needs: No Vision needs: No Physical Exam ED Vital Signs: Vital Signs - 24 hr 04/12/25 07:17 04/12/25 08:00 04/12/25 10:00 Temperature 98.3 F 97.4 F 97.5 F Pulse Rate 87 84 85 Respiratory Rate 18 18 18 Blood Pressure 111/57 L 102/69 101/65 Pulse Oximetry 94 94 97 Oxygen Delivery Method Room Air Room Air Room Air BMI result Body Mass Index 29.4 Vital signs have been reviewed and appear to be correct. Blood pressure normal. Heart rate normal. Respiratory rate normal. Temperature normal. Oxygen saturation normal. Const General: cooperative, healthy appearing and no acute distress Orientation/consciousness: oriented to person, oriented to place, oriented to time and patient oriented x3 Limitations: no limitations HENMT Head: Yes normocephalic and Yes atraumatic Ears: external ears normal General nose exam: Normal external nose present Face and sinus: Yes face symmetric Mouth: oropharynx normal and moist mucous membranes Throat: Yes uvula midline Eyes Pupils: Equal, round and reactive pupils present Neck Neck: Yes normal visual inspection and Yes supple Resp Effort & Inspection: normal respiratory effort and able to speak in complete sentences Auscultation: clear to auscultation bilaterally Cardio Rate: regular rate Rhythm: regular rhythm Heart sounds: S1 normal heart sound present and S2 normal heart sound present GI Palpation (GI): Soft to palpation and nontender Auscultation: normoactive bowel sounds General: Yes no CVA tenderness Back/Spine/Pelvis Back: no CVA tenderness Skin General skin exam: elasticity normal and turgor normal Neuro General: oriented to person, oriented to place, oriented to time, patient oriented x3, moves all extremities, no focal motor deficits and CN's II-XI intact bilaterally Cranial nerves: Yes Equal, round and reactive pupils present Cognition (Neuro): normal cognition Extrem General: Yes full ROM, Yes no pedal edema and Yes no calf tenderness Psych Mental Status: mental status grossly normal Affect: normal affect Thought process: Normal thought process present Medications Administered Discontinued Medications Generic Name Dose Route Start Last Admin Trade Name Freq PRN Reason Stop Dose Admin Iohexol 100 ml 04/12/25 09:51 04/12/25 09:53 Iohexol 350 Mg/Ml 100 Ml Infus..Btl IV 04/12/25 09:52 85 ml ONCE ONE Administration Medical Decision Making Medical Decision Making [facility] Narrative: Patient is a 69-year-old male with pmhx of infrarenal AAA, HTN, HLD, asthma, smoking presenting to the emergency department with complaint of diarrhea since 03/28 after eating at a restaurant in [place]. On exam patient is awake, A+Ox3, VS WNL, afebrile, normal neurological exam without focal deficits, physical exam findings as above. Given reported symptoms and physical exam findings, initial differential includes but is not limited to diverticulitis, viral illness, flu, covid, electrolyte abnormality. Labs notable for No leukocytosis, however increased bands and presence of toxic vacuolization. Urinalysis notable for 1+ leukocytes, negative nitrites, no blood, no bacteria. Viral serology negative. CT A/P notable for mesenteric fat haziness, diverticulosis without diverticulitis. My interpretation is in agreement with the radiologist's interpretation. Results discussed with patient and all questions answered. Advised patient to follow up with his bariatric specialist on Sunday, will also refer to GI for ongoing diarrhea. Feel patient is stable for discharge home at this time. Advised adequate fluid intake, particularly fluids with electrolytes. Return precautions discussed at bedside. Patient verbalized understanding of and agreement with plan. Differential Diagnosis Differential Diagnoses: The differential diagnosis associated with the presentation includes As per [facility] Admission/Observation Consideration of admission/observation: Escalation of care including admission/observation considered Patient would have been admitted to the hospital and transferred to appropriate facility had their clinical presentation warranted hospital admission. Lab Data [facility] Lab Attestation statement: I reviewed the patient's lab results. as per [facility] 04/12/25 08:08 04/12/25 08:08 Labs: Lab Results 04/12/25 04/12/25 04/12/25 Range/Units 08:06 08:08 08:35 WBC 7.9 (4.8-10.8) X10*3/uL RBC 4.58 L (4.60-5.80) X10*6/uL Hgb 15.1 (14.0-18.0) g/dl Hct 44.6 (42.0-52.0) % MCV 97.4 (80.0-98.0) fL MCH 33.0 (27.0-33.0) pg MCHC 33.9 (31.0-36.0) g/dl RDW 13.3 (11.0-16.0) % Plt Count 226 D (160-400) X10*3/uL MPV 12.6 H (9.4-12.4) fL Immature Gran % (Auto) Cancelled Neut % (Auto) Cancelled Lymph % (Auto) Cancelled [place] % (Auto) Cancelled Eos % (Auto) Cancelled Baso % (Auto) Cancelled Lymph # (Auto) Cancelled [place] # (Auto) Cancelled Eos # (Auto) Cancelled Baso # (Auto) Cancelled Abs Immat Gran (auto) Cancelled Absolute Neuts (auto) Cancelled Absolute Nucleated RBC 0.000 (0.0-0.012) X10*3/uL Nucleated RBC % (auto) 0.0 (0.0-0.2) /100WBC Neutrophils % (Manual) 50 (45-73) % Band Neutrophils % 9 H (3-5) % Lymphocytes % (Manual) 28 (20-40) % Monocytes % (Manual) 10 (2-11) % Eosinophils % (Manual) 3 (0-4) % Abs Neuts (Manual) 4.7 (2.0-8.3) X10*3/uL Lymphocytes # (Manual) 2.2 (1.2-4.9) X10*3/uL Monocytes # (Manual) 0.8 (0.1-1.2) X10*3/uL Eosinophils # (Manual) 0.2 (0.0-0.4) X10*3/uL Toxic Vacuolation PRESENT Platelet Estimate NORMAL (NORMAL) Large Platelets PRESENT Plt Morphology Comment NOTED RBC Morphology NORMAL Sodium 137 (135-145) mmol/L Potassium 3.6 (3.3-5.1) mmol/L Chloride 102 (96-108) mmol/L Carbon Dioxide 25 (22-29) mmol/L Anion Gap 14 (12-20) BUN 16 (9-16) mg/dL Creatinine 0.87 (0.5-1.4) mg/dL Estim Creat Clear Calc 89.2 Estimated GFR > 60 Random Glucose 88 (60-115) mg/dL Calcium 9.2 (8.4-10.2) mg/dL Total Bilirubin 0.6 (0.0-1.0) mg/dL AST 19 (5-37) U/L ALT 21 (0-40) U/L Alkaline Phosphatase 70 (39-117) U/L Total Protein 7.4 (6.5-8.0) g/dL Albumin 4.1 (3.5-5.0) g/dL Urine Color Dark Yellow Urine Appearance Cloudy Urine pH 5.5 (5.0-9.0) Ur Specific [place] >= 1.030 H (1.005-1.025) Urine Protein 30 (1+) H (Neg-Trace) mg/dL Urine Glucose (UA) Negative (Negative) mg/dL Urine Ketones 15 (Negative) mg/dL Urine Blood Trace H (Negative) Urine Nitrite Negative (Negative) Ur Leukocyte Esterase Small (1+) H (Negative) Urine RBC 0-2 (0-2) /HPF Urine WBC 0-5 (0-5) /HPF Ur Squamous Epith Cells 3-5 (0-2) /HPF Calcium Oxalate Crystal Present Urine Bacteria None Seen (None Seen) Hyaline Casts 6-10 (0-2) /LPF Influenza Type A (PCR) NEGATIVE (Negative) Influenza Type B (PCR) NEGATIVE (Negative) RSV RNA Qual (PCR) NEGATIVE (Negative) SARS-CoV-2 RNA (RT-PCR) NEGATIVE (Negative) Independent Interpretation I performed an independent interpretation of an: CT Scan Interpretation: CT A/P notable for mesenteric fat haziness, diverticulosis without diverticulitis. Radiology Impression Discussion of test interpretation with radiology: I have reviewed the radiologist's reading. Radiologist Impression: IMPRESSION: Mesenteric fat haziness with multiple nonenlarged mesenteric lymph nodes which is nonspecific though can be seen in mesenteric panniculitis. Diffuse diverticulosis without definitive areas to suggest active diverticulitis. Infrarenal abdominal aortic aneurysm measuring up to 4 cm. External Record Review External record reviewed: Inpatient record, Office record and Outpatient record Discharge Plan Discharge Clinical Impression: Nausea, vomiting, and diarrhea Patient Disposition: Home, Self-Care Instructions: Acute Nausea and Vomiting (DC) Additional Instructions: You were evaluated in the emergency department today for weeks of diarrhea and vomiting last night. Your labs were reassuring. Your CT scan of the abdomen and pelvis did not show evidence of conditions requiring emergent medical treatment at this time. We recommend that you follow-up with your bariatric specialist on Sunday to discuss the possibility of your symptoms being related to your Zepbound medication. We are also referring you to gastroenterology for further evaluation and management of your symptoms. Return to the emergency department if you are unable to tolerate fluids by mouth, have persistent vomiting, develop fever 100.4? F or greater, abdominal pain or any other new or concerning symptoms. Prescriptions: No Action aspirin [Adult Aspirin Regimen] 81 mg tablet,delayed release (DR/EC) 81 mg PO DAILY Qty: 90 3RF rosuvastatin 10 mg tablet 10 mg PO DAILY 90 Days Qty: 90 1RF Zepbound 15 mg/0.5 mL solution 15 mg subcut QWEEK Qty: 2 0RF albuterol sulfate 90 mcg/actuation HFA aerosol inhaler 1 inh inhalation QID PRN (Reason: shortness of breath or wheezing) Qty: 6.7 1RF multivitamin Tablet 1 tab PO DAILY omega 9-bim-eps-fish oil [Fish Oil] 1,000 (120-180) mg capsule 1 cap PO DAILY mecobalamin (vitamin B12) 1,000 mcg tablet,chewable 1,000 mcg PO DAILY Referrals: [facility] [Provider Group, Gastroenterology] - 1 week Referral Note: diarrhea since 03/28 Clinical Impression: Nausea, vomiting, and diarrhea Valeriano Blanco MD [Physician, Bariatric Surgery] Clinical Impression: Nausea, vomiting, and diarrhea Print Language: Singaporean
[2025-04-12 09:23] LABS: Resp Syncy Virus RNA Qual PCR NEGATIVE (Negative); SARS COV2 PCR INHOUSE NEGATIVE (Negative)
[2025-04-12] MEDS: iohexoL 350 MG/ML 100 ML INFUS..BTL IV (09:53)
[2025-04-12 10:00] VITALS: BP 101/65; PULSE 85; RESP 18; TEMP 36.4; O2SAT 97
[2025-04-12 13:16] VITALS: BP 98/66; PULSE 79; TEMP 36.6; O2SAT 95
[2025-04-12 13:21] LABS: Lipase 6 U/L (8-78)
[2025-04-12 13:30] VITALS: BP 98/66; PULSE 79; RESP 18; TEMP 36.6; O2SAT 95
== END 2025-04-12 13:31 | disposition home or self-care (01) ==
PROVIDERS: Registered Nurse Emergency; Emergency Provider Emergency Medicine; PCP Nurse Practitioner Family
DX: R19.7 Diarrhea, unspecified (principal); R11.2 Nausea with vomiting, unspecified; I10 Essential (primary) hypertension; Z03.818 Encounter for observation for suspected exposure to other biological agents ruled out
CPT/HCPCS: 36415; 74177; 80053; 81001; 83690; 85007; 85027; 87086; 87637; 99283; 99285; Q9967

== ENCOUNTER → 2025-04-12 08:55 | Outpatient (BNV) | payer MEDICARE, SELFPAY | PROVIDERS: Emergency Provider Emergency Medicine; PCP Nurse Practitioner Family; Visit Provider Radiology Vascular & Interventional Radiology | DX: R19.7 Diarrhea, unspecified (principal) | CPT/HCPCS: 74177 ==